=== PATIENT | male | born 1970 | race Caucasian/White ===

== ENCOUNTER → 2016-11-01 | Outpatient (REF) | payer OTHER ==
[2016-11-01 15:56] LABS: BASO % 0.7 % (0.0-1.0); EOS # 0.1 K/mm3 (0.0-0.50); EOS % 1.7 % (0.0-3.0); LARGE UNSTAINED CELL # 0.2 K/mm3 (0.0-0.4); LYMPH # 2.7 K/mm3 (1.5-4.5); LYMPH % 41.1 % (24.0-44.0); MEAN CORPUSCULAR HEMOGLOBIN 29.6 pg (27.0-33.0); MEAN CORPUSCULAR HGB CONC 33.6 g/dl (32.0-36.5); MEAN CORPUSCULAR VOLUME 88.2 fl (80.0-96.0); MONO # 0.4 K/mm3 (0.0-0.8); MONO % 5.5 % (0.0-5.0); NEUTROPHILS # 3.2 K/mm3 (1.8-7.7); NEUTROPHILS % 47.9 % (36.0-66.0); PLATELET COUNT, AUTOMATED 178 k/mm3 (150-450); RED CELL DISTRIBUTION WIDTH 12.2 % (11.5-14.5); WHITE BLOOD COUNT 6.6 K/mm3 (4.0-10.0)
[2016-11-01 16:23] LABS: ALBUMIN 3.7 GM/DL (3.2-5.2); ALBUMIN/GLOBULIN RATIO 0.93 (1.00-1.93); ALKALINE PHOSPHATASE 77 U/L (45-117); ALT/SGPT 31 U/L (12-78); ANION GAP 10 MEQ/L (8-16); AST/SGOT 18 U/L (15-37); BILIRUBIN,TOTAL 0.9 MG/DL (0.2-1.0); BLOOD UREA NITROGEN 15 MG/DL (7-18); CALCIUM LEVEL 8.3 MG/DL (8.5-10.1); CARBON DIOXIDE LEVEL 24 MEQ/L (21-32); CHLORIDE LEVEL 105 MEQ/L (98-107); GLOMERULAR FILTRATION RATE > 60.0 (>60); GLUCOSE, FASTING 164 MG/DL (70-105); POTASSIUM SERUM 3.9 MEQ/L (3.5-5.1); SODIUM LEVEL 139 MEQ/L (136-145); TOTAL PROTEIN 7.7 GM/DL (6.4-8.2)
[2016-11-01 16:34] LABS: ERYTHROCYTE SEDIMENTATION RATE 3 mm/hr (0-15)
[2016-11-02 12:52] LABS: ALBUMIN % 54.6 % (55.8-66.1); GAMMA GLOBULIN % 20.3 % (11.1-18.8)
[2016-11-03 15:12] LABS: Lyme Disease IgG/IgM Antibodie <0.91 ISR (0.00-0.90); Lyme Disease IgM Ab Quantitati <0.80 index (0.00-0.79)
== END ==
LOC: M LABDRAW1 15:24
PROVIDERS: ATTEND Internal Medicine Rheumatology
DX: M35.9 Systemic involvement of connective tissue, unspecified (principal); R53.83 Other fatigue; D47.2 Monoclonal gammopathy; Z79.899 Other long term (current) drug therapy

== ENCOUNTER → 2017-06-03 | Outpatient (CLI) | payer OTHER ==
[~2017-06-03] MED LIST: CIAL5TAB PO; CYCL10TA PO; GLYB25TA PO; INVO300T PO; JANU100T PO; METF-700 PO; OMEP40CA2 PO
[2017-06-03 09:17] LABS: BASO % 0.7 % (0.0-1.0); EOS # 0.1 K/mm3 (0.0-0.50); EOS % 1.9 % (0.0-3.0); LARGE UNSTAINED CELL # 0.2 K/mm3 (0.0-0.4); LARGE UNSTAINED CELL % 2.9 % (0.0-4.0); LYMPH # 2.1 K/mm3 (1.5-4.5); LYMPH % 37.3 % (24.0-44.0); MEAN CORPUSCULAR HEMOGLOBIN 30.7 pg (27.0-33.0); MEAN CORPUSCULAR HGB CONC 34.9 g/dl (32.0-36.5); MONO # 0.3 K/mm3 (0.0-0.8); MONO % 4.8 % (0.0-5.0); NEUTROPHILS # 2.9 K/mm3 (1.8-7.7); NEUTROPHILS % 52.5 % (36.0-66.0); PLATELET COUNT, AUTOMATED 192 k/mm3 (150-450); RED CELL DISTRIBUTION WIDTH 12.6 % (11.5-14.5); WHITE BLOOD COUNT 5.6 K/mm3 (4.0-10.0)
[2017-06-03 09:46] LABS: ALBUMIN 3.8 GM/DL (3.2-5.2); ALBUMIN/GLOBULIN RATIO 0.88 (1.00-1.93); ALKALINE PHOSPHATASE 82 U/L (45-117); ALT/SGPT 26 U/L (12-78); ANION GAP 10 MEQ/L (8-16); AST/SGOT 17 U/L (15-37); BILIRUBIN,TOTAL 0.8 MG/DL (0.2-1.0); BLOOD UREA NITROGEN 20 MG/DL (7-18); CALCIUM LEVEL 8.4 MG/DL (8.5-10.1); CARBON DIOXIDE LEVEL 23 MEQ/L (21-32); CHLORIDE LEVEL 106 MEQ/L (98-107); CHOLESTEROL LEVEL 151 MG/DL (<200); CREATININE FOR GFR 0.98 MG/DL (0.70-1.30); GLOMERULAR FILTRATION RATE > 60.0 (>60); GLUCOSE, FASTING 211 MG/DL (70-105); POTASSIUM SERUM 4.1 MEQ/L (3.5-5.1); SODIUM LEVEL 139 MEQ/L (136-145); TOTAL PROTEIN 8.1 GM/DL (6.4-8.2); TRIGLYCERIDES LEVEL 194 MG/DL (<150)
[2017-06-04 14:14] LABS: PSA TOTAL 0.7 ng/mL (0.0-4.0)
== END ==
LOC: M WUC 08:03
PROVIDERS: ATTEND Nurse Practitioner Family
DX: E78.4 Other hyperlipidemia (principal); K21.9 Gastro-esophageal reflux disease without esophagitis; Z12.5 Encounter for screening for malignant neoplasm of prostate

== ENCOUNTER 2017-07-12 23:17 | Emergency (ER) | payer BC, OTHER ==
[~2017-07-12] VITALS: Ht 177.8 cm; Wt 150.0 kg
[2017-07-12] MEDS ORDERED: GLYB25TA PO (23:32)
[2017-07-12] MEDS ORDERED: INVO300T PO (23:32)
[2017-07-12] MEDS ORDERED: CYCL10TA PO (23:32)
[2017-07-12] MEDS ORDERED: CIAL5TAB PO (23:32)
[2017-07-12] MEDS ORDERED: METF-700 PO (23:32)
[2017-07-12] MEDS ORDERED: JANU100T PO (23:32)
[2017-07-12] MEDS ORDERED: OMEP40CA2 PO (23:32)
[2017-07-13] MEDS ORDERED: HYDROmorphone HCL 1 MG/ML SYRINGE (J1170) IV ONE (00:30)
[2017-07-13] MEDS ORDERED: NS 1,000 ML IV ONE (00:30)
[2017-07-13] MEDS ORDERED: ISOVUE-370 76% 100ML VIAL (Q9967) As Ordered ONE (00:43)
[2017-07-13 00:44] LABS: BASO # 0.1 10^3/uL (0.0-0.2); BASO % 0.5 % (0.0-1.0); EOS # 0.1 10^3/uL (0.0-0.50); EOS % 1.4 % (0.0-3.0); IMMATURE GRANULOCYTE % 1.1 % (0-0); LYMPH # 2.2 10^3/uL (1.5-4.5); LYMPH % 23.4 % (24.0-44.0); MEAN CORPUSCULAR HEMOGLOBIN 30.1 pg (27.0-33.0); MEAN CORPUSCULAR HGB CONC 34.4 g/dl (32.0-36.5); MEAN CORPUSCULAR VOLUME 87.6 fl (80.0-96.0); MONO % 10.5 % (0.0-5.0); NEUTROPHILS # 5.8 10^3/uL (1.8-7.7); NEUTROPHILS % 63.1 % (36.0-66.0); PLATELET COUNT, AUTOMATED 225 10^3/uL (150-450); RED CELL DISTRIBUTION WIDTH 13.7 % (11.5-14.5); WHITE BLOOD COUNT 9.2 10^3/uL (4.0-10.0)
[2017-07-13 02:44] LABS: ALBUMIN 3.5 GM/DL (3.2-5.2); ALBUMIN/GLOBULIN RATIO 0.83 (1.00-1.93); ALKALINE PHOSPHATASE 80 U/L (45-117); ALT/SGPT 32 U/L (12-78); ANION GAP 8 MEQ/L (8-16); AST/SGOT 18 U/L (15-37); BILIRUBIN,DIRECT 0.4 MG/DL (0.0-0.2); BILIRUBIN,TOTAL 1.2 MG/DL (0.2-1.0); BLOOD UREA NITROGEN 24 MG/DL (7-18); CALCIUM LEVEL 8.3 MG/DL (8.5-10.1); CARBON DIOXIDE LEVEL 23 MEQ/L (21-32); CHLORIDE LEVEL 104 MEQ/L (98-107); CREATININE FOR GFR 0.86 MG/DL (0.70-1.30); GLOMERULAR FILTRATION RATE > 60.0 (>60); GLUCOSE, FASTING 171 MG/DL (70-105); POTASSIUM SERUM 3.7 MEQ/L (3.5-5.1); SODIUM LEVEL 135 MEQ/L (136-145); TOTAL PROTEIN 7.7 GM/DL (6.4-8.2)
--- NOTE | 2017-07-13 04:30 | REPUSA ---
CLINICAL HISTORY: Neck pain. TECHNIQUE: Multiple axial images were obtained through the cervical spine. Images were also reconstru cted in coronal and sagittal planes. The study was performed without IV contrast. COMMENTS: There is no fracture or spondylolisthesis visualized. The paraspinal soft tissues are unremarkable. T here are no lytic or blastic lesions. Straightening of cervical lordosis is seen, suggesting muscular spasm. There is evidence of multileve l disk disease, demonstrated by osteophytosis and endplate sclerosis. IMPRESSION: 1. No fracture or spondylolisthesis. 2. Straightening of cervical lordosis is seen, suggesting muscular spasm. 3. Multilevel spondylosis. Thank you for your kind referral of this patient.
--- NOTE | 2017-07-13 04:50 | REPUSA ---
CLINICAL HISTORY: Trauma. TECHNIQUE: Multiple axial CT images were obtained through the thoracic spine without IV contrast mate rial. MPR coronal and sagittal sequences were obtained. COMMENTS: There are diffuse spondylotic changes. Findings are demonstrated by disc space narrowing, osteophyte formation and degenerative endplate changes. Facet joint arthropathy. No fracture or dislocation is s een. No aggressive bone lesion is noted. There is no fracture visualized. The paraspinal soft tissues are unremarkable. There are no lytic or blastic lesions. The paravertebral soft tissue space is normal. IMPRESSION: Spondylosis. No acute bone pathology. Thank you for your kind referral of this patient.
--- NOTE | 2017-07-13 04:50 | REPUSA ---
CLINICAL HISTORY: Abdominal pain. TECHNIQUE: Multiple axial, sagittal and coronal CT images were obtained through the abdomen and pelvi s after administration of intravenous contrast material. COMMENTS: The liver is moderately enlarged with decreased attenuation without mass or defect. There is no intra or extrahepatic biliary ductal dilatation. The spleen is normal. The gallbladder is within normal li mits. The pancreas is of normal contour and attenuation characteristics. There is no evidence of adre nal mass. Both kidneys demonstrate prompt and equal nephrograms. The kidneys are normal in size, shape and conf iguration. There is no evidence of renal or ureteral mass. No renal or ureteral calculi are identifie d. There is no hydroureter or hydronephrosis. No evidence for appendicitis. There is no bowel wall thickening. No evidence for small or large dulce l obstruction. There is no evidence of abdominal ascites or lymphadenopathy. There is no evidence of intrinsic or extrinsic bladder mass. There is no pelvic ascites or lymphadeno milagros. Fluid and diffusely dilated colon. Images of the lung bases show no evidence of pleural or parenchymal mass. There are no pleural effusi ons. Bilateral basilar subsegmental atelectatic air space disease. The bony structures are free of lytic or blastic lesions. Multilevel degenerative changes are seen in volving the thoracolumbar spine. Scattered calcifications are seen involving the aorta and major bran ches compatible with atherosclerosis. IMPRESSION: No evidence of acute abdominal or pelvic pathology. Mild ileus. Hepatomegaly with fatty liver infiltration. Thank you for your kind referral of this patient.
--- NOTE | 2017-07-13 05:10 | REPUSA ---
CLINICAL HISTORY: Trauma. TECHNIQUE: Multiple incremental axial, coronal and oblique images are obtained from the thoracic inle t to the upper abdomen. Intravenous contrast material was administered as per pulmonary embolism prot ocol. COMMENTS: Mildly displaced fractures of the axillary portion of the right fifth, sixth and seventh ribs. There is excellent opacification of pulmonary arterial system without evidence for pulmonary embolism . Aorta is of normal caliber without evidence for dissection or aneurysm. Subsegmental atelectatic airspace disease in the lung bases. Basilar atelectatic lung changes. There is no evidence of pleural or parenchymal mass. There are no pleural effusions. There is no evid ence of hilar or mediastinal lymphadenopathy. The heart and great vessels are within normal limits. Images of the upper abdomen demonstrate no evidence of adrenal mass. The bony structures are free of lytic or blastic lesions. IMPRESSION: Acute right rib fractures. No evidence for pulmonary embolism. Basilar atelectatic lung changes. Thank you for your kind referral of this patient.
[2017-07-13] MEDS ORDERED: MORPHINE 4 MG/ML 1ML SYRINGE IV ONE (05:30)
[2017-07-13] MEDS ORDERED: NORCO 5/325MG TABLET (BULK FOR ED) PO ONE (05:30)
[2017-07-13 06:02] VITALS: BP 108/56
== END 2017-07-13 06:25 | disposition home or self-care (01) ==
LOC: M ED 23:17
DX: S20.219A Contusion of unspecified front wall of thorax, initial encounter (principal); V80.010A Animal-rider injured by fall from or being thrown from horse in noncollision accident, initial encounter; Y92.89 Other specified places as the place of occurrence of the external cause; Y93.52 Activity, horseback riding; Y99.8 Other external cause status; E11.9 Type 2 diabetes mellitus without complications; K21.9 Gastro-esophageal reflux disease without esophagitis; Z79.84 Long term (current) use of oral hypoglycemic drugs; Z79.899 Other long term (current) drug therapy
CPT/HCPCS: 70450; 71275; 72125; 72128; 74177; 80048; 80076; 82550; 85025; 96374; 96375; 99284; J1170; Q9967

== ENCOUNTER → 2017-09-27 | Outpatient (CLI) | payer OTHER ==
[2017-09-27 18:34] LABS: ANION GAP 7 MEQ/L (8-16); BLOOD UREA NITROGEN 15 MG/DL (7-18); CALCIUM LEVEL 8.8 MG/DL (8.5-10.1); CARBON DIOXIDE LEVEL 29 MEQ/L (21-32); CHLORIDE LEVEL 103 MEQ/L (98-107); CREATININE FOR GFR 0.93 MG/DL (0.70-1.30); GLOMERULAR FILTRATION RATE > 60.0 (>60); GLUCOSE, FASTING 150 MG/DL (70-105); POTASSIUM SERUM 4.2 MEQ/L (3.5-5.1); SODIUM LEVEL 139 MEQ/L (136-145)
== END ==
LOC: M WUC 14:08
DX: Z01.812 Encounter for preprocedural laboratory examination (principal)
CPT/HCPCS: 80048

== ENCOUNTER → 2017-10-10 | Outpatient (CLI) | payer OTHER ==
[2017-10-10 16:57] LABS: ANION GAP 7 MEQ/L (8-16); BLOOD UREA NITROGEN 14 MG/DL (7-18); CALCIUM LEVEL 8.7 MG/DL (8.5-10.1); CARBON DIOXIDE LEVEL 29 MEQ/L (21-32); CHLORIDE LEVEL 101 MEQ/L (98-107); CREATININE FOR GFR 1.17 MG/DL (0.70-1.30); GLOMERULAR FILTRATION RATE > 60.0 (>60); GLUCOSE, FASTING 263 MG/DL (70-105); POTASSIUM SERUM 4.2 MEQ/L (3.5-5.1); SODIUM LEVEL 137 MEQ/L (136-145)
== END ==
LOC: M WUC 13:54
DX: Z01.812 Encounter for preprocedural laboratory examination (principal)
CPT/HCPCS: 80048

== ENCOUNTER → 2017-10-11 | Outpatient (CLI) | payer OTHER | LOC: M EKG 10:08 | DX: Z01.818 Encounter for other preprocedural examination (principal) | CPT/HCPCS: 93005 ==

== ENCOUNTER → 2017-12-06 | Outpatient (CLI) | payer OTHER, BC ==
[2017-12-06 13:07] LABS: ALBUMIN 3.8 GM/DL (3.2-5.2); ALBUMIN/GLOBULIN RATIO 0.93 (1.00-1.93); ALKALINE PHOSPHATASE 82 U/L (45-117); ALT/SGPT 27 U/L (12-78); ANION GAP 8 MEQ/L (8-16); AST/SGOT 15 U/L (7-37); BILIRUBIN,TOTAL 0.6 MG/DL (0.2-1.0); BLOOD UREA NITROGEN 20 MG/DL (7-18); CALCIUM LEVEL 8.8 MG/DL (8.5-10.1); CARBON DIOXIDE LEVEL 25 MEQ/L (21-32); CHLORIDE LEVEL 105 MEQ/L (98-107); CHOLESTEROL LEVEL 151 MG/DL (<200); CHOLESTEROL RISK RATIO 3.212 (<5); CREATININE FOR GFR 1.01 MG/DL (0.70-1.30); GLOMERULAR FILTRATION RATE > 60.0 (>60); GLUCOSE, FASTING 151 MG/DL (70-100); HDL CHOLESTEROL 47 MG/DL (>40); NON-HDL-C 104 MG/DL; POTASSIUM SERUM 4.3 MEQ/L (3.5-5.1); SODIUM LEVEL 138 MEQ/L (136-145); TOTAL PROTEIN 7.9 GM/DL (6.4-8.2); TRIGLYCERIDES LEVEL 135 MG/DL (<150)
== END ==
LOC: M WUC 08:45
DX: E78.4 Other hyperlipidemia (principal)
CPT/HCPCS: 80053

== ENCOUNTER → 2018-03-24 | Outpatient (CLI) | payer OTHER, BC ==
[2018-03-24 19:49] LABS: ANION GAP 12 MEQ/L (8-16); BLOOD UREA NITROGEN 16 MG/DL (7-18); CALCIUM LEVEL 8.6 MG/DL (8.5-10.1); CARBON DIOXIDE LEVEL 24 MEQ/L (21-32); CHLORIDE LEVEL 106 MEQ/L (98-107); GLOMERULAR FILTRATION RATE > 60.0 (>60); GLUCOSE, FASTING 80 MG/DL (70-100); POTASSIUM SERUM 3.9 MEQ/L (3.5-5.1); SODIUM LEVEL 142 MEQ/L (136-145)
== END ==
LOC: M WUC 15:29
DX: Z01.818 Encounter for other preprocedural examination (principal)
CPT/HCPCS: 80048

== ENCOUNTER → 2018-09-18 | Outpatient (CLI) | payer OTHER, BC ==
[2018-09-18 15:26] LABS: BASO % 0.5 % (0.0-1.0); EOS # 0.1 10^3/uL (0.0-0.50); EOS % 1.3 % (0.0-3.0); HEMATOCRIT 49.1 % (42.0-52.0); HEMOGLOBIN 16.7 g/dl (13.5-17.5); LYMPH # 1.8 10^3/uL (1.5-4.5); LYMPH % 30.5 % (24.0-44.0); MEAN CORPUSCULAR HEMOGLOBIN 29.6 pg (27.0-33.0); MEAN CORPUSCULAR VOLUME 87.1 fl (80.0-96.0); MONO # 0.4 10^3/uL (0.0-0.8); NEUTROPHILS # 3.6 10^3/uL (1.8-7.7); NEUTROPHILS % 60.2 % (36.0-66.0); PLATELET COUNT, AUTOMATED 203 10^3/uL (150-450); RED BLOOD COUNT 5.64 10^6/uL (4.30-6.10)
[2018-09-18 15:27] LABS: ALBUMIN 3.7 GM/DL (3.2-5.2); ALT/SGPT 27 U/L (12-78); BILIRUBIN,TOTAL 0.8 MG/DL (0.2-1.0); BLOOD UREA NITROGEN 14 MG/DL (7-18); CALCIUM LEVEL 8.6 MG/DL (8.5-10.1); CARBON DIOXIDE LEVEL 24 MEQ/L (21-32); CHLORIDE LEVEL 102 MEQ/L (98-107); CHOLESTEROL LEVEL 186 MG/DL (<200); CHOLESTEROL RISK RATIO 3.795 (<5); CREATININE FOR GFR 0.94 MG/DL (0.70-1.30); GLOMERULAR FILTRATION RATE > 60.0 (>56); GLUCOSE, FASTING 245 MG/DL (70-100); HDL CHOLESTEROL 49 MG/DL (>40); LDL CHOLESTEROL 96 MG/DL (<100); NON-HDL-C 137 MG/DL; POTASSIUM SERUM 4.1 MEQ/L (3.5-5.1); SODIUM LEVEL 136 MEQ/L (136-145); TOTAL PROTEIN 7.7 GM/DL (6.4-8.2); TRIGLYCERIDES LEVEL 205 MG/DL (<150)
[2018-09-18 16:09] LABS: HEMOGLOBIN A1c 10.5 %
== END ==
LOC: M WUC 12:07
PROVIDERS: ATTEND Nurse Practitioner Family
DX: E78.49 Other hyperlipidemia (principal); K21.9 Gastro-esophageal reflux disease without esophagitis; E11.9 Type 2 diabetes mellitus without complications

== ENCOUNTER → 2018-10-29 | Outpatient (REF) | payer OTHER | LOC: M SFHCPLAZ 17:12 → M SFHCLERA 17:12 | PROVIDERS: ATTEND Dermatology | DX: L73.2 Hidradenitis suppurativa (principal); L57.0 Actinic keratosis ==

== ENCOUNTER → 2019-02-11 | Outpatient (CLI) | payer BC, OTHER ==
--- NOTE | 2019-02-11 14:32 | REP ---
Clinical: Left lower extremity swelling and medial lump. Technique: Montoya scale and color Doppler evaluation using linear high frequency transducer. Findings: Ultrasound examination of the left lower extremity deep venous structures from the common femoral vein to the popliteal vein demonstrates normal compressibility flow and wave patterns in response to respiration and augmentation. There is no evidence for deep venous thrombosis. "Lump" along the medial thigh corresponds to varicoceles. Impression: No evidence for deep venous thrombosis. Electronically Signed by Greyson Ryan MD 02/11/2019 02:24 P
== END ==
LOC: M RAD 13:29
PROVIDERS: ATTEND Physician Assistant
DX: R22.42 Localized swelling, mass and lump, left lower limb (principal)

== ENCOUNTER → 2019-05-29 | Outpatient (CLI) | payer OTHER, BC ==
[2019-05-29 21:04] LABS: HEMOGLOBIN A1c 10.4 %
== END ==
LOC: M WUC 15:54
PROVIDERS: ATTEND Nurse Practitioner Family
DX: E11.9 Type 2 diabetes mellitus without complications (principal)

== ENCOUNTER 2019-10-14 07:11 | Day surgery (SDC) | payer BC, OTHER ==
[~2019-10-14] VITALS: Ht 177.8 cm; Wt 150.1 kg
[~2019-10-14 07:11] MED LIST changes: +NS 1,000 ML IV ONE; -OMEP40CA2 PO; +OMEP40CA97 PO; +TOUJ1.2I SC
[2019-10-14] MEDS ORDERED: fentaNYL 100 MCG/2 ML INJECTION (J3010) As Ordered ONE (08:10)
[2019-10-14] MEDS ORDERED: propofoL 500 MG/50 ML VIAL As Ordered ONE (08:10)
[2019-10-14] MEDS ORDERED: LIDOCAINE 2% INJ 100 MG/5 ML SDV (FOR ANES.) As Ordered ONE (09:01)
[2019-10-14] MEDS ORDERED: CETACAINE SPRAY 5GM As Ordered ONE (09:01)
--- NOTE | 2019-10-14 09:24 | ROOR ---
Patient Name: Norman Dior Procedure Date: 10/14/2019 9:01 AM Date of : 1970 Age: 49 Room: [facility] Gender: Male Note Status: Finalized Procedure: Upper Endoscopy + Biopsies Indications: Heartburn, Exclusion of Taylor's esophagus Providers: Michael Metcalf MD Referring MD: Magnolia Roman NP Requesting Provider: Medicines: Monitored Anesthesia Care Complications: No immediate complications. Procedure: Pre-Anesthesia Assessment: - The heart rate, respiratory rate, oxygen saturations, blood pressure, adequacy of pulmonary ventilation, and response to care were monitored throughout the procedure. The Endoscope was introduced through the mouth, and advanced to the second part of duodenum. The upper GI endoscopy was accomplished without difficulty. The patient tolerated the procedure well. Findings: The Z-line was irregular and was found 40 cm from the incisors. Multiple biopsies were obtained with cold forceps for evaluation to rule out Taylor's Esophagus randomly at the gastroesophageal junction. A small hiatal hernia was present. No other significant abnormalities were identified in a careful examination of the stomach. The exam of the duodenum was otherwise normal. Impression: - Z-line irregular, 40 cm from the incisors. - Small hiatal hernia. - Multiple biopsies were obtained at the gastroesophageal junction. - The examination was otherwise normal. Recommendation: - Patient has a contact number available for emergencies. The signs and symptoms of potential delayed complications were discussed with the patient. Return to normal activities tomorrow. Written discharge instructions were provided to the patient. - High fiber diet. - Discharge patient to home. - Resume previous diet. - Continue present medications. - Return to referring physician. - The findings and recommendations were discussed with the patient's family. Michael Metcalf MD Michael Metcalf MD 10/14/2019 9:23:55 AM Electronically signed by Michael Metcalf MD Number of Addenda: 0 Note Initiated On: 10/14/2019 9:01 AM Estimated Blood Loss: Estimated blood loss: none.
--- NOTE | 2019-10-14 09:42 | ROOR ---
Patient Name: Norman Dior Procedure Date: 10/14/2019 9:01 AM Date of : 1970 Age: 49 Room: [facility] Gender: Male Note Status: Finalized Procedure: Total Colonoscopy to Cecum + Biopsy Polypectomy Indications: Screening for colorectal malignant neoplasm Providers: Michael Metcalf MD Referring MD: Magnolia Roman NP Requesting Provider: Medicines: Monitored Anesthesia Care Complications: No immediate complications. Procedure: Pre-Anesthesia Assessment: - The heart rate, respiratory rate, oxygen saturations, blood pressure, adequacy of pulmonary ventilation, and response to care were monitored throughout the procedure. The Colonoscope was introduced through the anus and advanced to the cecum, identified by appendiceal orifice and ileocecal valve. The colonoscopy was performed without difficulty. The patient tolerated the procedure well. The quality of the bowel preparation was inadequate. Findings: The perianal and digital rectal examinations were normal. Non-bleeding internal hemorrhoids were found during retroflexion. The hemorrhoids were small and Grade I (internal hemorrhoids that do not prolapse). Extensive amounts of stool was found in the entire colon, precluding visualization. A small polyp was found in the hepatic flexure. The polyp was sessile. The polyp was removed with a jumbo cold forceps. Resection and retrieval were complete. The exam was otherwise without abnormality on direct and retroflexion views. Impression: - Preparation of the colon was inadequate. - Non-bleeding internal hemorrhoids. - Stool in the entire examined colon. - One small polyp at the hepatic flexure, removed with a jumbo cold forceps. Resected and retrieved. - The examination was otherwise normal on direct and retroflexion views. - The exam was otherwise normal to the cecum. Recommendation: - Patient has a contact number available for emergencies. The signs and symptoms of potential delayed complications were discussed with the patient. Return to normal activities tomorrow. Written discharge instructions were provided to the patient. - High fiber diet. - Discharge patient to home. - Continue present medications. - Await pathology results. - Telephone GI clinic for pathology results in 1 week. - Return to referring physician. - The findings and recommendations were discussed with the patient's family. Michael Metcalf MD Michael Metcalf MD 10/14/2019 9:42:13 AM Electronically signed by Michael Metcalf MD Number of Addenda: 0 Note Initiated On: 10/14/2019 9:01 AM Estimated Blood Loss: Estimated blood loss: none.
[2019-10-14 10:00] VITALS: BP 159/96
== END 2019-10-14 10:18 | disposition home or self-care (01) ==
LOC: M OPP 07:11
PROVIDERS: ATTEND Internal Medicine Gastroenterology
DX: Z12.11 Encounter for screening for malignant neoplasm of colon (principal); K64.0 First degree hemorrhoids; D12.3 Benign neoplasm of transverse colon; K22.8 Other specified diseases of esophagus; K44.9 Diaphragmatic hernia without obstruction or gangrene; K21.9 Gastro-esophageal reflux disease without esophagitis; R12 Heartburn; Z79.4 Long term (current) use of insulin; Z79.2 Long term (current) use of antibiotics; Z79.899 Other long term (current) drug therapy
CPT/HCPCS: 43239; 45380; 88305; J3010

== ENCOUNTER → 2019-11-12 | Outpatient (CLI) | payer OTHER, BC ==
[~2019-11-12] MED LIST changes: -NS 1,000 ML IV ONE
[2019-11-12 16:29] LABS: BASO # 0.1 10^3/uL (0.0-0.2); BASO % 0.7 % (0.0-1.0); EOS # 0.1 10^3/uL (0.0-0.5); EOS % 1.3 % (0.0-3.0); HEMATOCRIT 51.9 % (42.0-52.0); HEMOGLOBIN 17.8 g/dl (13.5-17.5); LYMPH # 2.8 10^3/uL (1.5-5.0); LYMPH % 37.9 % (24.0-44.0); MEAN CORPUSCULAR HEMOGLOBIN 29.4 pg (27.0-33.0); MEAN CORPUSCULAR HGB CONC 34.3 g/dl (32.0-36.5); MEAN CORPUSCULAR VOLUME 85.6 fl (80.0-96.0); MONO # 0.6 10^3/uL (0.0-0.8); MONO % 7.8 % (0.0-5.0); NEUTROPHILS # 3.8 10^3/uL (1.5-8.5); NEUTROPHILS % 51.1 % (36.0-66.0); PLATELET COUNT, AUTOMATED 188 10^3/uL (150-450); RED BLOOD COUNT 6.06 10^6/uL (4.30-6.10); WHITE BLOOD COUNT 7.4 10^3/uL (4.0-10.0)
[2019-11-12 16:44] LABS: ALT/SGPT 28 U/L (12-78); BILIRUBIN,TOTAL 0.7 MG/DL (0.2-1.0); BLOOD UREA NITROGEN 17 MG/DL (7-18); CARBON DIOXIDE LEVEL 26 MEQ/L (21-32); CHLORIDE LEVEL 104 MEQ/L (98-107); CHOLESTEROL LEVEL 188 MG/DL (<200); CHOLESTEROL RISK RATIO 3.916 (<5); CREATININE FOR GFR 1.01 MG/DL (0.70-1.30); FREE T4 1.16 NG/DL (0.76-1.46); GLOMERULAR FILTRATION RATE > 60.0 (>56); GLUCOSE, FASTING 240 MG/DL (70-100); HDL CHOLESTEROL 48 MG/DL (>40); LDL CHOLESTEROL 82 MG/DL (<100); NON-HDL-C 140 MG/DL; POTASSIUM SERUM 4.3 MEQ/L (3.5-5.1); SODIUM LEVEL 136 MEQ/L (136-145); TOTAL PROTEIN 8.1 GM/DL (6.4-8.2); TRIGLYCERIDES LEVEL 288 MG/DL (<150)
[2019-11-12 17:06] LABS: CREATININE, URINE 75.5 MG/DL; MALB URINE SIEMENS 12.5 MG/L; MAU/CREAT RATIO 16.5 MCG/MG (0.0-30.0)
== END ==
LOC: M WUC 11:19
PROVIDERS: ATTEND Nurse Practitioner Family
DX: E11.9 Type 2 diabetes mellitus without complications (principal); E66.01 Morbid (severe) obesity due to excess calories

== ENCOUNTER → 2020-01-22 | Outpatient (CLI) | payer BC, OTHER ==
[~2020-01-22] MED LIST changes: +CYCL-707 PO; -CYCL10TA PO
--- NOTE | 2020-01-22 17:27 | REP ---
BILATERAL HIP SERIES: FOUR VIEWS. HISTORY: Pain. FINDINGS: AP and frog-leg views of both hips demonstrate bilateral hip joint osteoarthritis with femoral and acetabular spurring. These changes are more pronounced on the right than the left. Femoral heads remains smooth and rounded. Hip joint spaces are preserved. No bony destructive or erosive changes seen. IMPRESSION: Bilateral hip joint osteoarthritis, right greater than left. Electronically Signed by Jonathan Calderón MD 01/25/2020 08:44 A
== END ==
LOC: M WUC 16:10
PROVIDERS: ATTEND Psychiatry & Neurology Neurology
DX: M25.552 Pain in left hip (principal); M25.551 Pain in right hip; M16.0 Bilateral primary osteoarthritis of hip

== ENCOUNTER → 2020-08-23 | Outpatient (CLI) | payer BC, OTHER ==
[~2020-08-23] MED LIST changes: -METF-700 PO; +METF-818 PO
== END ==
LOC: M LABSMTC 12:17
PROVIDERS: ATTEND Family Medicine
DX: Z20.828 Contact with and (suspected) exposure to other viral communicable diseases (principal)

== ENCOUNTER → 2020-11-01 | Outpatient (POV) | payer BC, OTHER ==
--- NOTE | 2020-11-02 12:23 | IRCOV ---
[facility] IR Consult Office Visit IR Consult Office Visit DATE: Nov 01, 2020 Patient agreed to this-consultation. I spent 30 minutes roving patient's records and talking to the patient. REASON FOR CONSULTATION/CHIEF COMPLAINT: Varicose veins. HISTORY OF PRESENT ILLNESS: 50-year-old male complaining of a large varix on the medial left thigh which recently exploded and blood. It is now sealed up. He's had a varicose vein in the area for over a year. It is associated pain and swelling. No prior history of DVT. No prior history of vein therapy. ALLERGIES: Please see below. HOME MEDICATIONS: Please see below. PAST MEDICAL HISTORY: Diabetes Sleep apnea GERD L1 compression PAST SURGICAL HISTORY: Tonsillectomy Carpal tunnel surgery Ulnar release Vasectomy FAMILY HISTORY: Grandmother suffered with varicose veins. SOCIAL HISTORY: Nonsmoker. Denies alcohol or drugs. REVIEW OF SYSTEMS: Otherwise negative. PHYSICAL EXAMINATION: No video on patient side. LABORATORY DATA: 11/12/2019 hemoglobin 17.8 hematocrit 51.9 to BBC 7.4 platelets 188 sodium 136 potassium 4.3 BUN 17 creatinine 1.01 hemoglobin A1c 11 Imaging: No varicose vein imaging. ASSESSMENT/PLAN: 50-year-old male complaining of pain, swelling and recent bleeding associated with a varicosity running along his left medial thigh. I will order left lower extremity standing venous reflux study to assess for saphenous vein incompetency. If this is positive, he may be a candidate for EVLT therapy. Thank you for this referral. Cc Amanda Roman Allergies Coded Allergies: No Known Allergies (Unverified , 10/01/19) Home Medications Scheduled Canagliflozin (Invokana), 300 MG PO DAILY, (Reported) Insulin Glargine,Hum.rec.anlog (Toumichael Solostar), 50 UNIT SC QAM, (Reported) Metformin HCl (Metformin ER Gastric), 1,000 MG PO DAILY, (Reported) Omeprazole (Omeprazole), 40 MG PO DAILY, (Reported) Sitagliptin Phosphate (Januvia), 100 MG PO DAILY, (Reported) Tadalafil (Cialis), 5 MG PO DAILY, (Reported) MARITO MUÑOZ MD Nov 02, 2020 12:23
== END ==
LOC: M TMIRPOV 10:19
PROVIDERS: ATTEND Radiology Diagnostic Radiology
DX: I83.812 Varicose veins of left lower extremity with pain (principal); E11.9 Type 2 diabetes mellitus without complications; K21.9 Gastro-esophageal reflux disease without esophagitis; G47.33 Obstructive sleep apnea (adult) (pediatric); Z79.4 Long term (current) use of insulin; Z79.899 Other long term (current) drug therapy

== ENCOUNTER → 2020-11-25 | Outpatient (CLI) | payer BC, OTHER ==
[~2020-11-25] MED LIST changes: +GLYB2.5T7 PO; -GLYB25TA PO
== END ==
LOC: M RAD 07:34
PROVIDERS: ATTEND Radiology Diagnostic Radiology
DX: Z53.9 Procedure and treatment not carried out, unspecified reason (principal); I83.812 Varicose veins of left lower extremity with pain

== ENCOUNTER → 2020-11-25 | Outpatient (CLI) | payer BC, OTHER ==
--- NOTE | 2020-11-25 10:43 | REP ---
INDICATION: VARICOSE VEINS COMPARISON: 02/11/2019. TECHNIQUE: Real time compression and duplex Doppler interrogation of the bilateral lower extremity deep venous system is performed. FINDINGS: Bilaterally, the common femoral, superficial femoral and popliteal veins are fully compressible with transducer pressure and demonstrate normal spontaneous and phasic flow, without evidence of deep venous thrombosis. Evaluation for venous reflux is performed. On the right trace short duration reflux is seen throughout the deep venous system. There is an anterior accessory greater saphenous vein present without reflux. There is minimal greater saphenous vein reflux, small volume. In the greater saphenous vein at the saphenofemoral junction duration of reflux is 2.3 seconds, AP diameter 6 mm, at the midthigh 1.5 seconds duration AP diameter 4 mm and at the knee 0.5 seconds AP diameter 4 mm. There is no reflux in the lesser saphenous vein which measures 3 mm. On the left there is not significant deep vein reflux. There is significant reflux into anterior accessory greater saphenous vein which communicates with varices. There is reflux in the greater saphenous vein at the saphenofemoral junction, of small volume, duration 2.5 seconds in AP diameter 8 mm. 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 There is no reflux in the greater saphenous vein at the midthigh or knee which both measure 3 mm. IMPRESSION: No evidence of deep venous thrombosis of the bilateral lower extremity femoral popliteal venous system. Venous reflux as discussed in detail above. <Electronically signed by Kleber Montoya > 11/25/20 1031
== END ==
LOC: M RAD 07:35
PROVIDERS: ATTEND Nurse Practitioner Family
DX: I83.891 Varicose veins of right lower extremity with other complications (principal)

== ENCOUNTER → 2020-12-26 | Outpatient (CLI) | payer BC, OTHER ==
[~2020-12-26] MED LIST changes: +LIDOCAINE 1% MDV 20ML VIAL As Ordered ONE; +LIDOCAINE 2% MDV 20ML VIAL As Ordered ONE; +MIDAZOLAM INJ 2MG/2ML VIAL (J2250 PER 1MG) As Ordered ONE; +PROMETHAZINE INJ 25 MG/ML VIAL (J2550) As Ordered ONE; +TRUL0.5I; +diphenhydrAMINE 50MG/ML VIAL (J1200) As Ordered ONE; +fentaNYL 100 MCG/2 ML INJECTION (J3010) As Ordered ONE
--- NOTE | 2020-12-26 12:59 | IRHP ---
[facility] IR Pre-Procedure H & P General Date of Service: Dec 26, 2020 Procedure: Same Day Surgery Interval History and Physical I have seen the patient and reviewed last H & P performed within 30 days. There is no significant interval change. History of Present Illness Chief Complaint The patient is a 50-year-old male admitted with a reason for visit of Varicose Veins. PRE-PROCEDURE DIAGNOSIS: varicose vein HEART: normal rate. LUNGS: normal breathing at rest. ASA Classification ASA Classification: II-Mild systemic disease, III-Severe systemic dis. Mallampati Score: II NPO: Yes Problems with prior sedation: No Obstructive Sleep Apnea: Yes Plan moderate sedation Allergies Coded Allergies: No Known Allergies (Unverified , 10/01/19) Home Medications Scheduled Canagliflozin (Invokana), 300 MG PO DAILY, (Reported) Insulin Glargine,Hum.rec.anlog (Jennifer Dickerson), 50 UNIT SC QAM, (Reported) Metformin HCl (Metformin ER Gastric), 1,000 MG PO DAILY, (Reported) Omeprazole (Omeprazole), 40 MG PO DAILY, (Reported) Sitagliptin Phosphate (Januvia), 100 MG PO DAILY, (Reported) Tadalafil (Cialis), 5 MG PO DAILY, (Reported) Miscellaneous Medications Dulaglutide (Trulicity), (Reported) MARITO MUÑOZ MD Dec 26, 2020 12:59
[2020-12-26 16:15] VITALS: BP 154/79
--- NOTE | 2020-12-27 10:22 | IRPON ---
IR Postoperative Note Date Of Procedure: Dec 26, 2020 Time Of Procedure: 16:00 IR Postoperative Note IR Endovenous laser treatment for left leg varicose vein. IR Ultrasound of the left leg. IR Tumescent anesthesia under ultrasound guidance. IR Moderate sedation. Clinical information: Left lower extremity pain and swelling. Varicose veins. Incompetent saphenous vein with greater than 0.5 seconds of reflux. Physician: Dr. Arthur. Procedure: The patient was advised of the benefits, risks and alternatives of the procedure and informed consent was obtained. The time-out was performed with verification of the patient's name, MRN, site of procedure and type of procedure to be performed. The patient was positioned in the supine position on the table. The site was prepped and draped in the usual sterile fashion. Moderate sedation was performed by the physician including the presence of an independent trained RN who assisted in monitoring the patient's level of consciousness and physiologic status. Following the administration of fentanyl and Versed , the physician spent 90 minutes of continuous face to face time with the patient. Ultrasound of the left lower extremity demonstrates dilated anterior accessory greater saphenous vein with greater than 0.5 seconds reflux. The access site was identified with ultrasound and anesthetized with lidocaine. The anterior accessory saphenous vein was accessed under ultrasound guidance at the mid thigh, using a micro introducer needle. Distal to this the vein is incredibly tortuous and superficial and inappropriate for access. An 018 cope wire was advanced into the vein. Incision at the access site was made using a scalpel. The needle was removed and an access catheter was advanced over the wire under ultrasound guidance to > 2.5 centimeters from the saphenofemoral junction. The wire was removed and the laser fiber was advanced through the catheter under ultrasound guidance and positioned with the tip located 2.5 cm from the saphenous femoral junction. Tumescent anesthesia was then injected under ultrasound guidance along the entire length of the vein to be treated. Repeat ultrasound of the saphenofemoral junction was used to confirm positioning of the tip of the laser back 2.5 cm from junction. The patient was positioned in Trendelenburg. The laser was then activated and under ultrasound guidance used to laser the Anterior accessory greater saphenous vein back to the access point. Simultaneous manual compression was applied to the treated vein. Treatment: Wattage: 7. Time: 62 seconds. Pullback rate 1 cm every 7 seconds. Total Energy deposited 434 joules. Treatment 50 joules per centimeter of vein. The fiber, catheter and sheath were removed, pressure held and hemostasis achieved. A sterile dressing was applied to the site. Compression dressing was then applied to the leg, from ankle to groin. The patient tolerated the procedure well and was returned to the PRU in stable condition. EBL: < 5 ml. Complications: None. Impression: 1. Ultrasound demonstrates dilated left anterior accessory greater saphenous vein with greater than 0.5 seconds reflux. 2. Successful anterior accessory greater saphenous vein ablation with laser. 3. Compression dressing applied from ankle to groin. Patient to return in 1 week for follow up ultrasound at which time the compression dressing will be switched to stockings. Thank you this referral. Cc MARITO Eckert NP, MD Dec 27, 2020 10:21
== END ==
LOC: M IRPRO 12:06
PROVIDERS: ATTEND Radiology Diagnostic Radiology
DX: I83.812 Varicose veins of left lower extremity with pain (principal); I83.892 Varicose veins of left lower extremity with other complications; I87.2 Venous insufficiency (chronic) (peripheral); Z79.4 Long term (current) use of insulin; Z79.899 Other long term (current) drug therapy
CPT/HCPCS: 36478; 76940; 99152; 99153; J1200; J2250; J3010

== ENCOUNTER → 2021-01-02 | Outpatient (CLI) | payer BC, OTHER ==
[~2021-01-02] MED LIST changes: -LIDOCAINE 1% MDV 20ML VIAL As Ordered ONE; -LIDOCAINE 2% MDV 20ML VIAL As Ordered ONE; -MIDAZOLAM INJ 2MG/2ML VIAL (J2250 PER 1MG) As Ordered ONE; -PROMETHAZINE INJ 25 MG/ML VIAL (J2550) As Ordered ONE; -diphenhydrAMINE 50MG/ML VIAL (J1200) As Ordered ONE; -fentaNYL 100 MCG/2 ML INJECTION (J3010) As Ordered ONE
--- NOTE | 2021-01-03 07:41 | REP ---
INDICATION: S/P EVLT LT LEG, R/O DVT COMPARISON: None. TECHNIQUE: Montoya scale and color Doppler evaluation using linear high frequency transducer. FINDINGS: Ultrasound examination of the left lower extremity deep venous structures from the common femoral vein to the popliteal vein demonstrates normal compressibility flow and wave patterns in response to respiration and augmentation. There is no evidence for deep venous thrombosis. Greater saphenous vein is thrombosed consistent with prior EVLT beginning 4 cm from the origin with the common femoral vein. IMPRESSION: No evidence for deep venous thrombosis. <Electronically signed by Greyson Ryan > 01/03/21 0738
== END ==
LOC: M RAD 13:58
PROVIDERS: ATTEND Radiology Diagnostic Radiology
DX: I82.812 Embolism and thrombosis of superficial veins of left lower extremity (principal); Z98.890 Other specified postprocedural states

== ENCOUNTER → 2021-05-25 | Outpatient (REF) | payer OTHER ==
[~2021-05-25] MED LIST changes: +OMEP40CA4 PO; -OMEP40CA97 PO
[2021-05-25 11:10] LABS: HEMOGLOBIN A1c 10.8 %
[2021-05-25 11:21] LABS: ALBUMIN 3.6 GM/DL (3.2-5.2); ALT/SGPT 23 U/L (12-78); BILIRUBIN,TOTAL 0.8 MG/DL (0.2-1.0); BLOOD UREA NITROGEN 18 MG/DL (7-18); CARBON DIOXIDE LEVEL 26 MEQ/L (21-32); CHLORIDE LEVEL 101 MEQ/L (98-107); CREATININE FOR GFR 0.99 MG/DL (0.70-1.30); GLOMERULAR FILTRATION RATE > 60.0 (>56); GLUCOSE, FASTING 377 MG/DL (70-100); POTASSIUM SERUM 4.3 MEQ/L (3.5-5.1); SODIUM LEVEL 133 MEQ/L (136-145); TOTAL PROTEIN 7.6 GM/DL (6.4-8.2)
== END ==
LOC: M SFHCCLAY 07:24
PROVIDERS: ATTEND Nurse Practitioner Family
DX: E11.9 Type 2 diabetes mellitus without complications (principal)

== ENCOUNTER → 2021-08-29 | Outpatient (REF) | payer OTHER ==
[2021-08-30 11:43] LABS: ALBUMIN 3.7 GM/DL (3.2-5.2); ALT/SGPT 21 U/L (12-78); BILIRUBIN,TOTAL 0.7 MG/DL (0.2-1.0); BLOOD UREA NITROGEN 18 MG/DL (7-18); CARBON DIOXIDE LEVEL 27 MEQ/L (21-32); CHLORIDE LEVEL 104 MEQ/L (98-107); CREATININE FOR GFR 1.15 MG/DL (0.70-1.30); GLOMERULAR FILTRATION RATE > 60.0 (>56); GLUCOSE, FASTING 267 MG/DL (70-100); POTASSIUM SERUM 5.7 MEQ/L (3.5-5.1); SODIUM LEVEL 136 MEQ/L (136-145); TOTAL PROTEIN 7.5 GM/DL (6.4-8.2)
[2021-08-30 11:44] LABS: HEMOGLOBIN A1c 9.4 %
== END ==
LOC: M SFHCCLAY 15:17
PROVIDERS: ATTEND Nurse Practitioner Family
DX: E11.9 Type 2 diabetes mellitus without complications (principal)

== ENCOUNTER → 2022-01-08 | Outpatient (REF) | payer OTHER ==
[2022-01-08 17:01] LABS: HEMOGLOBIN A1c 9.9 %
[2022-01-08 17:20] LABS: ALBUMIN 3.7 GM/DL (3.2-5.2); ALT/SGPT 24 U/L (12-78); BILIRUBIN,TOTAL 0.6 MG/DL (0.2-1.0); BLOOD UREA NITROGEN 22 MG/DL (7-18); CALCIUM LEVEL 8.5 MG/DL (8.5-10.1); CARBON DIOXIDE LEVEL 26 MEQ/L (21-32); CHLORIDE LEVEL 104 MEQ/L (98-107); CREATININE FOR GFR 1.13 MG/DL (0.70-1.30); GLOMERULAR FILTRATION RATE > 60.0 (>56); GLUCOSE, FASTING 304 MG/DL (70-100); POTASSIUM SERUM 3.9 MEQ/L (3.5-5.1); SODIUM LEVEL 135 MEQ/L (136-145)
== END ==
LOC: M SFHCCLAY 12:53
PROVIDERS: ATTEND Nurse Practitioner Family
DX: E11.9 Type 2 diabetes mellitus without complications (principal)

== ENCOUNTER → 2022-05-24 | Outpatient (REF) | payer OTHER ==
[2022-05-24 12:06] LABS: HEMOGLOBIN A1c 10.1 %
[2022-05-24 12:32] LABS: ALBUMIN 3.4 GM/DL (3.2-5.2); ALT/SGPT 20 U/L (12-78); BILIRUBIN,TOTAL 0.8 MG/DL (0.2-1.0); BLOOD UREA NITROGEN 13 MG/DL (7-18); CALCIUM LEVEL 8.5 MG/DL (8.5-10.1); CARBON DIOXIDE LEVEL 25 MEQ/L (21-32); CHLORIDE LEVEL 106 MEQ/L (98-107); CHOLESTEROL LEVEL 133 MG/DL (<200); CHOLESTEROL RISK RATIO 2.557 (<5); CREATININE FOR GFR 0.83 MG/DL (0.70-1.30); GLOMERULAR FILTRATION RATE > 60.0 (>56); GLUCOSE, FASTING 206 MG/DL (70-100); HDL CHOLESTEROL 52 MG/DL (>40); LDL CHOLESTEROL 50 MG/DL (<100); NON-HDL-C 81 MG/DL; POTASSIUM SERUM 4.1 MEQ/L (3.5-5.1); SODIUM LEVEL 137 MEQ/L (136-145); TOTAL PROTEIN 7.1 GM/DL (6.4-8.2); TRIGLYCERIDES LEVEL 154 MG/DL (<150)
== END ==
LOC: M SFHCCLAY 06:59
PROVIDERS: ATTEND Nurse Practitioner Family
DX: E11.9 Type 2 diabetes mellitus without complications (principal)

== ENCOUNTER → 2022-08-24 | Outpatient (REF) | payer OTHER ==
[2022-08-24 19:19] LABS: ALBUMIN 3.9 G/DL (3.2-5.2); ALKALINE PHOSPHATASE 119 U/L (46-116); ALT/SGPT 16 U/L (7.0-40); AST/SGOT 12 U/L (<34); BILIRUBIN,TOTAL 0.6 MG/DL (0.3-1.2); BLOOD UREA NITROGEN 24 MG/DL (9-23); CALCIUM LEVEL 9.1 MG/DL (8.5-10.1); CARBON DIOXIDE LEVEL 24 MMOL/L (20-31); CHLORIDE LEVEL 101 MMOL/L (98-107); CREATININE FOR GFR 0.89 MG/DL (0.70-1.30); GLOMERULAR FILTRATION RATE > 60.0 (>56); GLUCOSE, FASTING 329 MG/DL (60-100); SODIUM LEVEL 135 MMOL/L (136-145); TOTAL PROTEIN 7.1 G/DL (5.7-8.2)
[2022-08-24 19:33] LABS: HEMOGLOBIN A1c 9.6 % (4.0-6.0)
== END ==
LOC: M SFHCCLAY 13:30
PROVIDERS: ATTEND Nurse Practitioner Family
DX: E11.9 Type 2 diabetes mellitus without complications (principal)

== ENCOUNTER → 2022-11-20 | Outpatient (REF) | payer OTHER ==
[2022-11-20 17:41] LABS: ALBUMIN 3.9 G/DL (3.2-5.2); ALKALINE PHOSPHATASE 107 U/L (46-116); ALT/SGPT 19 U/L (7.0-40); AST/SGOT 17 U/L (<34); BILIRUBIN,TOTAL 0.6 MG/DL (0.3-1.2); BLOOD UREA NITROGEN 22 MG/DL (9-23); CALCIUM LEVEL 9.1 MG/DL (8.5-10.1); CARBON DIOXIDE LEVEL 31 MMOL/L (20-31); CHLORIDE LEVEL 102 MMOL/L (98-107); GLOMERULAR FILTRATION RATE > 60.0 (>56); GLUCOSE, FASTING 267 MG/DL (60-100); POTASSIUM SERUM 4.6 MMOL/L (3.5-5.1); SODIUM LEVEL 137 MMOL/L (136-145); TOTAL PROTEIN 7.3 G/DL (5.7-8.2)
[2022-11-20 17:50] LABS: HEMOGLOBIN A1c 9.2 % (4.0-6.0)
== END ==
LOC: M SFHCCLAY 14:03
PROVIDERS: ATTEND Nurse Practitioner Family
DX: E11.9 Type 2 diabetes mellitus without complications (principal)

== ENCOUNTER → 2023-02-22 | Outpatient (REF) | payer OTHER ==
[2023-02-22 12:01] LABS: ALBUMIN 3.9 G/DL (3.2-5.2); ALKALINE PHOSPHATASE 104 U/L (46-116); ALT/SGPT 16 U/L (7.0-40); AST/SGOT 8 U/L (<34); BILIRUBIN,TOTAL 0.9 MG/DL (0.3-1.2); BLOOD UREA NITROGEN 18 MG/DL (9-23); CALCIUM LEVEL 8.9 MG/DL (8.5-10.1); CARBON DIOXIDE LEVEL 29 MMOL/L (20-31); CHLORIDE LEVEL 103 MMOL/L (98-107); CREATININE FOR GFR 1.01 MG/DL (0.70-1.30); GLOMERULAR FILTRATION RATE > 60.0 (>56); GLUCOSE, FASTING 244 MG/DL (60-100); POTASSIUM SERUM 4.6 MMOL/L (3.5-5.1); SODIUM LEVEL 138 MMOL/L (136-145); TOTAL PROTEIN 7.1 G/DL (5.7-8.2)
== END ==
LOC: M SFHCCLAY 07:05
PROVIDERS: ATTEND Nurse Practitioner Family
DX: E11.9 Type 2 diabetes mellitus without complications (principal)

== ENCOUNTER → 2023-02-26 | Outpatient (REF) | payer OTHER | LOC: M SFHCCLAY 14:35 | PROVIDERS: ATTEND Nurse Practitioner Family | DX: E11.9 Type 2 diabetes mellitus without complications (principal) ==

== ENCOUNTER 2023-05-13 07:39 | Day surgery (SDC) | payer BC, OTHER ==
[~2023-05-13] VITALS: Ht 177.8 cm; Wt 129.3 kg
[~2023-05-13 07:39] MED LIST changes: +DOXY20TA4 PO; +ECOT81TA5 PO; +FARX1TAB3 PO; +NS 1,000 ML IV ONE; +SEMA1PEN2 SC
[2023-05-13] MEDS ORDERED: propofoL 200 MG/20 ML VIAL As Ordered ONE (08:24)
[2023-05-13] MEDS ORDERED: LIDOCAINE 2% 100MG/5ML SDV (FOR ANES.) As Ordered ONE (08:24)
[2023-05-13 08:56] VITALS: BP 120/68; O2SAT 94
== END 2023-05-13 08:58 | disposition home or self-care (01) ==
LOC: M OPP 07:39
PROVIDERS: ATTEND Internal Medicine Gastroenterology
DX: Z12.11 Encounter for screening for malignant neoplasm of colon (principal); Z79.82 Long term (current) use of aspirin; Z79.84 Long term (current) use of oral hypoglycemic drugs; Z79.85 Long-term (current) use of injectable non-insulin antidiabetic drugs; Z53.8 Procedure and treatment not carried out for other reasons

== ENCOUNTER → 2023-08-06 | Day surgery (SDC) | payer BC, OTHER ==
[~2023-08-06] VITALS: Ht 177.8 cm; Wt 125.8 kg
[~2023-08-06] MED LIST changes: +LIDOCAINE 2% 100MG/5ML SDV (FOR ANES.) As Ordered ONE; +SEMA2PEN SQ; +SIMETHICONE 40MG/0.6ML DROPS 30ML As Ordered ONE; +propofoL 200 MG/20 ML VIAL As Ordered ONE
[2023-08-06 07:59] VITALS: TEMP 97.8
[2023-08-06 08:20] VITALS: BP 108/65; O2SAT 98
== END | disposition home or self-care (01) ==
LOC: M OPP 06:50
PROVIDERS: ATTEND Internal Medicine Gastroenterology
DX: D12.2 Benign neoplasm of ascending colon (principal); K64.8 Other hemorrhoids; Z12.11 Encounter for screening for malignant neoplasm of colon; E11.9 Type 2 diabetes mellitus without complications; K21.9 Gastro-esophageal reflux disease without esophagitis; Z79.84 Long term (current) use of oral hypoglycemic drugs

== ENCOUNTER → 2023-08-26 | Outpatient (REF) | payer OTHER ==
[~2023-08-26] MED LIST changes: -LIDOCAINE 2% 100MG/5ML SDV (FOR ANES.) As Ordered ONE; -NS 1,000 ML IV ONE; -SIMETHICONE 40MG/0.6ML DROPS 30ML As Ordered ONE; -propofoL 200 MG/20 ML VIAL As Ordered ONE
[2023-08-26 14:36] LABS: ALBUMIN 3.7 G/DL (3.2-5.2); ALKALINE PHOSPHATASE 98 U/L (46-116); ALT/SGPT 15 U/L (7.0-40); AST/SGOT 12 U/L (<34); BILIRUBIN,TOTAL 0.8 MG/DL (0.3-1.2); BLOOD UREA NITROGEN 18 MG/DL (9-23); CALCIUM LEVEL 8.9 MG/DL (8.5-10.1); CARBON DIOXIDE LEVEL 26 MMOL/L (20-31); CHLORIDE LEVEL 103 MMOL/L (98-107); CREATININE FOR GFR 0.91 MG/DL (0.70-1.30); GLOMERULAR FILTRATION RATE > 60.0 (>56); GLUCOSE, FASTING 244 MG/DL (60-100); POTASSIUM SERUM 4.5 MMOL/L (3.5-5.1); SODIUM LEVEL 135 MMOL/L (136-145)
[2023-08-26 14:37] LABS: HEMOGLOBIN A1c 8.5 % (4.0-6.0)
== END ==
LOC: M SFHCCLAY 08:06
PROVIDERS: ATTEND Nurse Practitioner Family
DX: E11.9 Type 2 diabetes mellitus without complications (principal)

== ENCOUNTER 2023-09-11 16:16 | Day surgery (SDC) | payer BC, OTHER ==
[~2023-09-11] VITALS: Ht 177.8 cm; Wt 123.5 kg
[2023-09-11 17:18] LABS: BASO % 0.3 % (0.0-1.0); EOS % 0.2 % (0.0-3.0); HEMATOCRIT 50.5 % (42.0-52.0); HEMOGLOBIN 17.4 g/dl (13.5-17.5); LYMPH # 1.2 10^3/uL (1.5-5.0); LYMPH % 10.3 % (24.0-44.0); MEAN CORPUSCULAR HGB CONC 34.5 g/dl (32.0-36.5); MEAN CORPUSCULAR VOLUME 87.1 fl (80.0-96.0); MONO # 1.2 10^3/uL (0.0-0.8); MONO % 9.8 % (2.0-8.0); NEUTROPHILS # 9.4 10^3/uL (1.5-8.5); PLATELET COUNT, AUTOMATED 165 10^3/uL (150-450); WHITE BLOOD COUNT 11.9 10^3/uL (4.0-10.0)
[2023-09-11 17:40] LABS: ALBUMIN 3.9 G/DL (3.2-5.2); BILIRUBIN,DIRECT 0.4 MG/DL (<0.4); BILIRUBIN,TOTAL 1.6 MG/DL (0.3-1.2); TOTAL PROTEIN 7.3 G/DL (5.7-8.2)
[2023-09-11] MEDS ORDERED: NS 1,000 ML IV ONE (18:00)
[2023-09-11] MEDS ORDERED: KETOROLAC 30 MG/ML 1ML VIAL IV ONE (18:00)
[2023-09-11] MEDS ORDERED: ONDANSETRON 4MG 2ML VIAL IV ONE (18:00)
[2023-09-11] MEDS ORDERED: ISOVUE-370 76% 100ML VIAL As Ordered ONE (18:01)
[2023-09-11] MEDS ORDERED: PIPERACILLIN/TAZOBACTAM SOD 4.5 GM in D5W MINI-BAG PLUS 50 ML IV ONE (18:45)
[2023-09-11] MEDS ORDERED: MIDAZOLAM INJ 2MG/2ML VIAL As Ordered ONE (19:12)
[2023-09-11] MEDS ORDERED: fentaNYL 100 MCG/2 ML INJECTION As Ordered ONE ×2 (19:12→20:50)
[2023-09-11] MEDS ORDERED: ROCURONIUM BROMIDE 50MG/5ML VIAL As Ordered ONE ×2 (19:13→20:50)
[2023-09-11] MEDS ORDERED: LIDOCAINE 2% 100MG/5ML SDV (FOR ANES.) As Ordered ONE (19:13)
[2023-09-11] MEDS ORDERED: ONDANSETRON 4MG 2ML VIAL As Ordered ONE (19:13)
[2023-09-11] MEDS ORDERED: propofoL 200 MG/20 ML VIAL As Ordered ONE (19:13)
[2023-09-11] MEDS ORDERED: ZOSYN 4.5GM VIAL As Ordered ONE ×2 (19:36→20:02)
[2023-09-11] MEDS ORDERED: MED REC IN PROGRESS XX SCH (19:40)
[2023-09-11] MEDS ORDERED: NORCO, ANEXSIA 5/325MG TABLET (HYDROcodone/ACETAMINOPHEN) PO PRN ×2 (19:55)
[2023-09-11] MEDS ORDERED: ONDANSETRON 4MG 2ML VIAL IV PRN (19:55)
[2023-09-11 20:08] LABS: RSV AMPLIFICATION NEGATIVE (NEGATIVE)
[2023-09-11] MEDS ORDERED: ACETAMINOPHEN 1000MG 100ML IV BAG As Ordered ONE (20:27)
[2023-09-11] MEDS ORDERED: VASOPRESSIN INJ 20UNITS/ML 1ML VIAL As Ordered ONE (20:31)
[2023-09-11] MEDS ORDERED: SUGAMMADEX SODIUM 500 MG/5 ML VIAL (BRIDION) As Ordered ONE (20:39)
[2023-09-11] MEDS ORDERED: PHENYLephrine 500MCG 5ML (100MCG/ML) SYRINGE As Ordered ONE (20:39)
[2023-09-11 22:05] VITALS: BP 105/66; TEMP 97.9; O2SAT 94
[2023-09-11] MEDS: SENOKOT S TAB PO SCH (22:05)
[2023-09-11] MEDS: NS 1,000 ML IV SCH (22:05)
[2023-09-11 22:31] VITALS: BP 105/68; TEMP 97.5; O2SAT 95
[2023-09-11 23:36] VITALS: BP 96/57; TEMP 97.6; O2SAT 92
[2023-09-11] MEDS ORDERED: HOME MED LIST COMPLETE! XX SCH (23:40)
[2023-09-12 00:09] VITALS: BP 98/52
[2023-09-12 00:36] VITALS: BP 115/67; TEMP 97.5; O2SAT 95
[2023-09-12 01:36] VITALS: BP 124/67; TEMP 97.5; O2SAT 99
[2023-09-12] MEDS: KETOROLAC 30 MG/ML 1ML VIAL IV PRN ×2 (02:00→08:53)
[2023-09-12] MEDS: PIPERACILLIN/TAZOBACTAM SOD 3.375 GM in D5W MINI-BAG PLUS 50 ML IV SCH ×2 (02:00→08:52)
[2023-09-12 02:36] VITALS: BP 119/70; TEMP 99; O2SAT 92
[2023-09-12 05:59] VITALS: BP 99/59; TEMP 99.8; O2SAT 94
[2023-09-12] MEDS: NS 1,000 ML IV SCH (06:15)
[2023-09-12 06:26] VITALS: BP 128/84
[2023-09-12 06:59] LABS: HEMATOCRIT 46.6 % (42.0-52.0); HEMOGLOBIN 16.1 g/dl (13.5-17.5); MEAN CORPUSCULAR HGB CONC 34.5 g/dl (32.0-36.5); MEAN CORPUSCULAR VOLUME 89.6 fl (80.0-96.0); PLATELET COUNT, AUTOMATED 154 10^3/uL (150-450)
[2023-09-12] MEDS ORDERED: AMOX875T2 PO (08:50)
[2023-09-12] MEDS ORDERED: HYDR-3715 PO (08:50)
[2023-09-12] MEDS: SENOKOT S TAB PO SCH (08:52)
== END 2023-09-12 12:45 | disposition home or self-care (01) ==
LOC: M ED 16:16 → M OROP 19:14 → M MS5PR 21:48 → M OROP 09-12 12:45
PROVIDERS: ATTEND Surgery
DX: K35.891 Other acute appendicitis without perforation, with gangrene (principal); E11.9 Type 2 diabetes mellitus without complications; Z79.82 Long term (current) use of aspirin; Z79.899 Other long term (current) drug therapy; Z79.84 Long term (current) use of oral hypoglycemic drugs
CPT/HCPCS: 36415; 44970; 74177; 80047; 80076; 81001; 83690; 85025; 85027; 87631; 88304; 99284; J0131; J0665; J1885; J2250; J2371; J2405; J2543; J2598; J3010; Q9967

== ENCOUNTER 2023-09-19 04:33 | Inpatient (IN) | payer BC, OTHER ==
[~2023-09-19] VITALS: Ht 177.8 cm; Wt 121.6 kg
[~2023-09-19 04:33] MED LIST changes: +AMOX875T2 PO; +HYDR-3715 PO
[2023-09-19] MEDS ORDERED: NS 1,000 ML IV ONE (05:00)
[2023-09-19 05:04] LABS: BASO % 0.5 % (0.0-1.0); EOS # 0.1 10^3/uL (0.0-0.5); EOS % 1.6 % (0.0-3.0); HEMATOCRIT 49.6 % (42.0-52.0); HEMOGLOBIN 17.1 g/dl (13.5-17.5); LYMPH % 15.1 % (24.0-44.0); MEAN CORPUSCULAR HEMOGLOBIN 29.9 pg (27.0-33.0); MEAN CORPUSCULAR HGB CONC 34.5 g/dl (32.0-36.5); MEAN CORPUSCULAR VOLUME 86.7 fl (80.0-96.0); MONO # 0.5 10^3/uL (0.0-0.8); MONO % 8.4 % (2.0-8.0); NEUTROPHILS # 4.6 10^3/uL (1.5-8.5); NEUTROPHILS % 72.5 % (36.0-66.0); PLATELET COUNT, AUTOMATED 300 10^3/uL (150-450); RED BLOOD COUNT 5.72 10^6/uL (4.30-6.10); WHITE BLOOD COUNT 6.3 10^3/uL (4.0-10.0)
[2023-09-19 05:23] LABS: LIPASE 69 U/L (12-53)
[2023-09-19 05:25] LABS: ALBUMIN 2.3 G/DL (3.2-5.2); ALKALINE PHOSPHATASE 71 U/L (46-116); ALT/SGPT < 9 U/L (7.0-40); AST/SGOT 11 U/L (<34); BILIRUBIN,DIRECT 0.2 MG/DL (<0.4); BILIRUBIN,TOTAL 0.6 MG/DL (0.3-1.2); BLOOD UREA NITROGEN 15 MG/DL (9-23); CALCIUM LEVEL 8.2 MG/DL (8.5-10.1); CARBON DIOXIDE LEVEL 24 MMOL/L (20-31); CHLORIDE LEVEL 99 MMOL/L (98-107); CREATININE FOR GFR 0.66 MG/DL (0.70-1.30); GLOMERULAR FILTRATION RATE > 60.0 (>56); GLUCOSE, FASTING 247 MG/DL (60-100); POTASSIUM SERUM 3.9 MMOL/L (3.5-5.1); SODIUM LEVEL 134 MMOL/L (136-145); TOTAL PROTEIN 6.1 G/DL (5.7-8.2)
[2023-09-19] MEDS ORDERED: MORPHINE 4 MG/ML 1ML VIAL IV ONE (06:40)
[2023-09-19] MEDS ORDERED: PIPERACILLIN/TAZOBACTAM SOD 3.375 GM in D5W MINI-BAG PLUS 50 ML IV ONE (08:35)
[2023-09-19] MEDS ORDERED: ENOXAPARIN 40MG/0.4ML SYRINGE (J1650 PER 10MG) SC SCH (09:00)
[2023-09-19] MEDS ORDERED: MED REC IN PROGRESS XX SCH (09:30)
[2023-09-19] MEDS ORDERED: DEXTROSE 50% 50ML SYRINGE IV PRN (09:50)
[2023-09-19] MEDS ORDERED: GLUCOSE 4GM CHEW TABLET PO PRN (09:50)
[2023-09-19] MEDS ORDERED: ONDANSETRON 4MG 2ML VIAL IV PRN (09:50)
[2023-09-19] MEDS ORDERED: GLUCAGON INJ 1MG VIAL SC PRN (09:50)
[2023-09-19 11:00] VITALS: BP 127/73; TEMP 97.6; O2SAT 97
[2023-09-19] MEDS ORDERED: HOME MED LIST COMPLETE! XX SCH (11:05)
[2023-09-19] MEDS: NS 1,000 ML IV SCH ×2 (11:27→23:45)
[2023-09-19 12:04] VITALS: BP 115/66; TEMP 97.9; O2SAT 97
[2023-09-19] MEDS: PIPERACILLIN/TAZOBACTAM SOD 3.375 GM in D5W MINI-BAG PLUS 50 ML IV SCH ×2 (12:58→18:21)
[2023-09-19] MEDS: HYDROCORTISONE 1% CREAM 30GM TOP SCH ×2 (12:59→21:17)
[2023-09-19] MEDS: INSULIN LISPRO (NovoLOG) PER UNIT SC SCH ×3 (12:59→21:00)
[2023-09-19] MEDS: ACETAMINOPHEN TAB 650MG DOSE (2X325MG) PO PRN ×2 (13:00→20:07)
[2023-09-19] MEDS ORDERED: LIDOCAINE 1% MDV 20ML VIAL As Ordered ONE (16:02)
[2023-09-19 17:31] VITALS: BP 120/79; TEMP 97.4; O2SAT 97
[2023-09-19] MEDS: MORPHINE 2 MG/ML 1ML VIAL IV PRN ×2 (17:34→21:21)
[2023-09-19 19:07] VITALS: BP 124/71; TEMP 97.2; O2SAT 98
[2023-09-20] VITALS (7 sets, daily range): BP systolic 113–126; BP diastolic 59–72; TEMP 97.6–98.6; O2SAT 92–98
[2023-09-20] MEDS: MORPHINE 2 MG/ML 1ML VIAL IV PRN ×7 (00:26→23:19)
[2023-09-20] MEDS: PIPERACILLIN/TAZOBACTAM SOD 3.375 GM in D5W MINI-BAG PLUS 50 ML IV SCH ×4 (00:26→18:12)
[2023-09-20 07:33] LABS: BASO % 0.3 % (0.0-1.0); EOS # 0.1 10^3/uL (0.0-0.5); EOS % 1.7 % (0.0-3.0); LYMPH # 0.7 10^3/uL (1.5-5.0); LYMPH % 11.1 % (24.0-44.0); MEAN CORPUSCULAR HEMOGLOBIN 30.1 pg (27.0-33.0); MEAN CORPUSCULAR HGB CONC 34.4 g/dl (32.0-36.5); MEAN CORPUSCULAR VOLUME 87.5 fl (80.0-96.0); MONO # 0.4 10^3/uL (0.0-0.8); MONO % 6.5 % (2.0-8.0); NEUTROPHILS # 5.3 10^3/uL (1.5-8.5); PLATELET COUNT, AUTOMATED 276 10^3/uL (150-450); RED BLOOD COUNT 4.95 10^6/uL (4.30-6.10); WHITE BLOOD COUNT 6.6 10^3/uL (4.0-10.0)
[2023-09-20 07:41] LABS: HEMATOCRIT 43.3 % (42.0-52.0); HEMOGLOBIN 14.9 g/dl (13.5-17.5)
[2023-09-20 07:52] LABS: BLOOD UREA NITROGEN 8 MG/DL (9-23); CALCIUM LEVEL 7.6 MG/DL (8.5-10.1); CARBON DIOXIDE LEVEL 26 MMOL/L (20-31); CHLORIDE LEVEL 102 MMOL/L (98-107); CREATININE FOR GFR 0.55 MG/DL (0.70-1.30); GLOMERULAR FILTRATION RATE > 60.0 (>56); GLUCOSE, FASTING 201 MG/DL (60-100); MAGNESIUM LEVEL 1.6 MG/DL (1.8-2.4); POTASSIUM SERUM 3.4 MMOL/L (3.5-5.1); SODIUM LEVEL 137 MMOL/L (136-145)
[2023-09-20] MEDS: INSULIN LISPRO (NovoLOG) PER UNIT SC SCH ×4 (08:15→20:15)
[2023-09-20] MEDS: ENOXAPARIN 40MG/0.4ML SYRINGE (J1650 PER 10MG) SC SCH (08:15)
[2023-09-20] MEDS: HYDROCORTISONE 1% CREAM 30GM TOP SCH ×2 (08:16→20:15)
[2023-09-20] MEDS ORDERED: HEPARIN SOD (PORCINE) 5000UNITS/ML 1ML VIAL/SYRINGE SQ SCH (08:40)
[2023-09-20] MEDS ORDERED: MAGNESIUM OXIDE 400MG TAB (MAG-OX) PO ONE (09:05)
[2023-09-20] MEDS ORDERED: POTASSIUM CHLORIDE 10MEQ SR TABLET PO ONE (09:05)
[2023-09-20] MEDS: OMEPRAZOLE 20MG CAP PO SCH (09:41)
[2023-09-20] MEDS: ASPIRIN 81MG ENTERIC TABLET PO SCH (09:41)
[2023-09-21] MEDS: PIPERACILLIN/TAZOBACTAM SOD 3.375 GM in D5W MINI-BAG PLUS 50 ML IV SCH ×4 (01:10→18:38)
[2023-09-21 03:34] VITALS: BP 117/62; TEMP 97.9; O2SAT 95
[2023-09-21] MEDS: MORPHINE 2 MG/ML 1ML VIAL IV PRN ×5 (03:43→23:33)
[2023-09-21 05:23] LABS: BASO % 0.4 % (0.0-1.0); EOS # 0.1 10^3/uL (0.0-0.5); EOS % 1.5 % (0.0-3.0); HEMATOCRIT 43.1 % (42.0-52.0); HEMOGLOBIN 14.6 g/dl (13.5-17.5); LYMPH # 0.9 10^3/uL (1.5-5.0); LYMPH % 13.9 % (24.0-44.0); MEAN CORPUSCULAR HEMOGLOBIN 29.9 pg (27.0-33.0); MEAN CORPUSCULAR HGB CONC 33.9 g/dl (32.0-36.5); MEAN CORPUSCULAR VOLUME 88.1 fl (80.0-96.0); MONO # 0.4 10^3/uL (0.0-0.8); MONO % 6.5 % (2.0-8.0); NEUTROPHILS # 5.2 10^3/uL (1.5-8.5); NEUTROPHILS % 76.1 % (36.0-66.0); PLATELET COUNT, AUTOMATED 286 10^3/uL (150-450); RED BLOOD COUNT 4.89 10^6/uL (4.30-6.10); WHITE BLOOD COUNT 6.8 10^3/uL (4.0-10.0)
[2023-09-21 05:48] LABS: BLOOD UREA NITROGEN 8 MG/DL (9-23); CALCIUM LEVEL 7.7 MG/DL (8.5-10.1); CARBON DIOXIDE LEVEL 29 MMOL/L (20-31); CHLORIDE LEVEL 101 MMOL/L (98-107); CREATININE FOR GFR 0.67 MG/DL (0.70-1.30); GLOMERULAR FILTRATION RATE > 60.0 (>56); GLUCOSE, FASTING 261 MG/DL (60-100); MAGNESIUM LEVEL 1.7 MG/DL (1.8-2.4); POTASSIUM SERUM 3.5 MMOL/L (3.5-5.1); SODIUM LEVEL 137 MMOL/L (136-145)
[2023-09-21 07:30] VITALS: BP 124/69; TEMP 97.8; O2SAT 91
[2023-09-21] MEDS: INSULIN LISPRO (NovoLOG) PER UNIT SC SCH ×4 (08:05→20:29)
[2023-09-21] MEDS: ENOXAPARIN 40MG/0.4ML SYRINGE (J1650 PER 10MG) SC SCH (08:05)
[2023-09-21] MEDS: ASPIRIN 81MG ENTERIC TABLET PO SCH (08:05)
[2023-09-21] MEDS: OMEPRAZOLE 20MG CAP PO SCH (08:05)
[2023-09-21] MEDS: HYDROCORTISONE 1% CREAM 30GM TOP SCH ×2 (08:06→20:33)
[2023-09-21] MEDS: SENOKOT S TAB PO SCH ×2 (08:53→20:33)
[2023-09-21 11:51] VITALS: BP 114/62; TEMP 98.1; O2SAT 96
[2023-09-21 16:12] VITALS: BP 124/76; TEMP 99.1; O2SAT 96
[2023-09-21 23:30] VITALS: BP 119/72; TEMP 98.6; O2SAT 95
[2023-09-22] MEDS: PIPERACILLIN/TAZOBACTAM SOD 3.375 GM in D5W MINI-BAG PLUS 50 ML IV SCH ×4 (00:48→18:51)
[2023-09-22] MEDS ORDERED: ISOVUE-370 76% 100ML VIAL As Ordered ONE (03:15)
[2023-09-22] MEDS: GASTROGRAFIN SOLUTION 30ML PO SCH ×2 (03:31→04:03)
[2023-09-22 05:46] LABS: BASO % 0.6 % (0.0-1.0); EOS # 0.1 10^3/uL (0.0-0.5); EOS % 1.7 % (0.0-3.0); HEMATOCRIT 42.4 % (42.0-52.0); HEMOGLOBIN 14.3 g/dl (13.5-17.5); LYMPH % 14.7 % (24.0-44.0); MEAN CORPUSCULAR HGB CONC 33.7 g/dl (32.0-36.5); MEAN CORPUSCULAR VOLUME 88.9 fl (80.0-96.0); MONO # 0.4 10^3/uL (0.0-0.8); MONO % 6.3 % (2.0-8.0); NEUTROPHILS # 4.9 10^3/uL (1.5-8.5); NEUTROPHILS % 75.3 % (36.0-66.0); PLATELET COUNT, AUTOMATED 323 10^3/uL (150-450); RED BLOOD COUNT 4.77 10^6/uL (4.30-6.10); WHITE BLOOD COUNT 6.6 10^3/uL (4.0-10.0)
[2023-09-22 06:12] LABS: BLOOD UREA NITROGEN 8 MG/DL (9-23); CALCIUM LEVEL 7.6 MG/DL (8.5-10.1); CARBON DIOXIDE LEVEL 29 MMOL/L (20-31); CHLORIDE LEVEL 100 MMOL/L (98-107); CREATININE FOR GFR 0.52 MG/DL (0.70-1.30); GLOMERULAR FILTRATION RATE > 60.0 (>56); GLUCOSE, FASTING 249 MG/DL (60-100); MAGNESIUM LEVEL 1.6 MG/DL (1.8-2.4); POTASSIUM SERUM 3.3 MMOL/L (3.5-5.1); SODIUM LEVEL 136 MMOL/L (136-145)
[2023-09-22] MEDS: MORPHINE 2 MG/ML 1ML VIAL IV PRN ×2 (06:21→20:39)
[2023-09-22] MEDS: HYDROCORTISONE 1% CREAM 30GM TOP SCH ×2 (08:19→20:39)
[2023-09-22] MEDS: ENOXAPARIN 40MG/0.4ML SYRINGE (J1650 PER 10MG) SC SCH (08:19)
[2023-09-22] MEDS: INSULIN LISPRO (NovoLOG) PER UNIT SC SCH ×4 (08:19→20:37)
[2023-09-22] MEDS: ASPIRIN 81MG ENTERIC TABLET PO SCH (08:19)
[2023-09-22] MEDS: SENOKOT S TAB PO SCH ×2 (08:19→20:38)
[2023-09-22] MEDS: OMEPRAZOLE 20MG CAP PO SCH (08:20)
[2023-09-22 08:43] VITALS: BP 120/74; TEMP 97.9; O2SAT 96
[2023-09-22] MEDS ORDERED: MAG SULF 1GM/100ML (MAG RUN) 1 GM in IV 1 EA IV ONE (09:00)
[2023-09-22] MEDS: KCL 10MEQ/100ML SWI (KRUN) 10 MEQ in IV 1 EA IV SCH ×4 (10:46→14:41)
[2023-09-22] MEDS ORDERED: POTASSIUM CHLORIDE 10MEQ SR TABLET PO ONE (15:00)
[2023-09-22 16:29] VITALS: BP 115/68; TEMP 98.2; O2SAT 94
[2023-09-22 20:00] VITALS: BP 114/64; TEMP 97.7; O2SAT 95
[2023-09-23] MEDS: PIPERACILLIN/TAZOBACTAM SOD 3.375 GM in D5W MINI-BAG PLUS 50 ML IV SCH ×2 (01:09→06:12)
[2023-09-23 03:56] VITALS: BP 112/74; TEMP 98; O2SAT 93
[2023-09-23] MEDS: ACETAMINOPHEN TAB 650MG DOSE (2X325MG) PO PRN (06:12)
[2023-09-23 06:17] LABS: BASO % 0.5 % (0.0-1.0); EOS # 0.1 10^3/uL (0.0-0.5); HEMATOCRIT 41.4 % (42.0-52.0); HEMOGLOBIN 14.3 g/dl (13.5-17.5); LYMPH # 0.9 10^3/uL (1.5-5.0); MEAN CORPUSCULAR HEMOGLOBIN 30.5 pg (27.0-33.0); MEAN CORPUSCULAR HGB CONC 34.5 g/dl (32.0-36.5); MEAN CORPUSCULAR VOLUME 88.3 fl (80.0-96.0); MONO # 0.5 10^3/uL (0.0-0.8); MONO % 8.2 % (2.0-8.0); NEUTROPHILS # 4.4 10^3/uL (1.5-8.5); NEUTROPHILS % 73.1 % (36.0-66.0); PLATELET COUNT, AUTOMATED 360 10^3/uL (150-450); RED BLOOD COUNT 4.69 10^6/uL (4.30-6.10)
[2023-09-23 06:43] LABS: BLOOD UREA NITROGEN 7 MG/DL (9-23); CALCIUM LEVEL 7.6 MG/DL (8.5-10.1); CARBON DIOXIDE LEVEL 32 MMOL/L (20-31); CHLORIDE LEVEL 100 MMOL/L (98-107); CREATININE FOR GFR 0.54 MG/DL (0.70-1.30); GLOMERULAR FILTRATION RATE > 60.0 (>56); GLUCOSE, FASTING 258 MG/DL (60-100); MAGNESIUM LEVEL 1.9 MG/DL (1.8-2.4); POTASSIUM SERUM 3.8 MMOL/L (3.5-5.1); SODIUM LEVEL 136 MMOL/L (136-145)
[2023-09-23 07:46] VITALS: BP 121/69; TEMP 97.2; O2SAT 95
[2023-09-23] MEDS: INSULIN LISPRO (NovoLOG) PER UNIT SC SCH ×2 (08:41→12:00)
[2023-09-23] MEDS: ENOXAPARIN 40MG/0.4ML SYRINGE (J1650 PER 10MG) SC SCH (08:42)
[2023-09-23] MEDS: OMEPRAZOLE 20MG CAP PO SCH (08:42)
[2023-09-23] MEDS: HYDROCORTISONE 1% CREAM 30GM TOP SCH (08:42)
[2023-09-23] MEDS: SENOKOT S TAB PO SCH (08:42)
[2023-09-23] MEDS: ASPIRIN 81MG ENTERIC TABLET PO SCH (08:42)
[2023-09-23] MEDS ORDERED: POTASSIUM CHLORIDE 10MEQ SR TABLET PO ONE (08:50)
[2023-09-23 11:44] VITALS: BP 97/60; TEMP 96.1; O2SAT 94
== END 2023-09-23 13:09 | disposition home or self-care (01) | DRG 721 ==
LOC: EDBD 04:33 → M ED 04:33 → M ED INP 09:48 → M PCU 10:59
PROVIDERS: ADMIT Family Medicine; ATTEND Family Medicine
PROC: 0W9F30Z Drainage of Abdominal Wall with Drainage Device, Percutaneous Approach (ICD-10-PCS; principal; 2023-09-19 16:17)
DX: T81.43XA Infection following a procedure, organ and space surgical site, initial encounter (principal); K65.1 Peritoneal abscess; E83.42 Hypomagnesemia; B96.20 Unspecified Escherichia coli [E. coli] as the cause of diseases classified elsewhere; E11.9 Type 2 diabetes mellitus without complications; E87.6 Hypokalemia; Z90.49 Acquired absence of other specified parts of digestive tract; Z79.82 Long term (current) use of aspirin; Z79.2 Long term (current) use of antibiotics; Z79.84 Long term (current) use of oral hypoglycemic drugs; Z79.899 Other long term (current) drug therapy; Z20.822 Contact with and (suspected) exposure to COVID-19

== ENCOUNTER → 2023-09-26 | Outpatient (REF) | payer BC, OTHER | LOC: M SFHCCLAY 18:04 | PROVIDERS: ATTEND Nurse Practitioner Family | DX: Z31.41 Encounter for fertility testing (principal) ==

== ENCOUNTER → 2023-09-27 | Outpatient (CLI) | payer BC, OTHER ==
[~2023-09-27] MED LIST changes: +LEVO1TAB40 PO; +LIDOCAINE 1% MDV 20ML VIAL As Ordered ONE; +METR-265 PO; +MIRA3350 PO; +OXYC1TAB23 PO; +PROB250C PO
[2023-09-27 09:49] VITALS: TEMP 97.7
[2023-09-27 10:50] VITALS: BP 105/67; O2SAT 97
== END ==
LOC: M IRPRO 09:35
PROVIDERS: ATTEND Surgery
DX: K65.1 Peritoneal abscess (principal)

== ENCOUNTER 2023-09-28 10:49 | Observation (INO) | payer BC, OTHER ==
[~2023-09-28] VITALS: Ht 172.7 cm; Wt 118.2 kg
[~2023-09-28 10:49] MED LIST changes: -LEVO1TAB40 PO; -LIDOCAINE 1% MDV 20ML VIAL As Ordered ONE; -METR-265 PO; -MIRA3350 PO; -OXYC1TAB23 PO; -PROB250C PO
[2023-09-28 11:59] LABS: BASO # 0.1 10^3/uL (0.0-0.2); BASO % 0.9 % (0.0-1.0); EOS # 0.1 10^3/uL (0.0-0.5); EOS % 1.1 % (0.0-3.0); HEMOGLOBIN 16.5 g/dl (13.5-17.5); MEAN CORPUSCULAR HEMOGLOBIN 29.8 pg (27.0-33.0); MEAN CORPUSCULAR HGB CONC 34.4 g/dl (32.0-36.5); MEAN CORPUSCULAR VOLUME 86.8 fl (80.0-96.0); MONO # 0.5 10^3/uL (0.0-0.8); MONO % 8.6 % (2.0-8.0); NEUTROPHILS % 70.5 % (36.0-66.0); PLATELET COUNT, AUTOMATED 360 10^3/uL (150-450); RED BLOOD COUNT 5.53 10^6/uL (4.30-6.10); WHITE BLOOD COUNT 5.7 10^3/uL (4.0-10.0)
[2023-09-28 12:25] LABS: LIPASE 63 U/L (12-53)
[2023-09-28 12:27] LABS: ALBUMIN 2.9 G/DL (3.2-5.2); ALKALINE PHOSPHATASE 77 U/L (46-116); ALT/SGPT 13 U/L (7.0-40); AST/SGOT 17 U/L (<34); BILIRUBIN,DIRECT 0.3 MG/DL (<0.4); BILIRUBIN,TOTAL 1.2 MG/DL (0.3-1.2); TOTAL PROTEIN 7.2 G/DL (5.7-8.2)
[2023-09-28] MEDS ORDERED: ONDANSETRON 4MG 2ML VIAL IV ONE (12:55)
[2023-09-28] MEDS ORDERED: PIPERACILLIN/TAZOBACTAM SOD 4.5 GM in D5W MINI-BAG PLUS 50 ML IV ONE (13:10)
[2023-09-28] MEDS: NS 1,000 ML IV SCH ×4 (13:10→21:27)
[2023-09-28 13:13] LABS: BLOOD UREA NITROGEN 11 MG/DL (9-23); CALCIUM LEVEL 8.7 MG/DL (8.5-10.1); CARBON DIOXIDE LEVEL 26 MMOL/L (20-31); CHLORIDE LEVEL 97 MMOL/L (98-107); CREATININE FOR GFR 0.69 MG/DL (0.70-1.30); GLOMERULAR FILTRATION RATE > 60.0 (>56); GLUCOSE, FASTING 258 MG/DL (60-100); POTASSIUM SERUM 4.4 MMOL/L (3.5-5.1); SODIUM LEVEL 130 MMOL/L (136-145)
[2023-09-28 13:40] LABS: BLOOD UREA NITROGEN 12 MG/DL (9-23); CALCIUM LEVEL 8.6 MG/DL (8.5-10.1); CARBON DIOXIDE LEVEL 26 MMOL/L (20-31); CHLORIDE LEVEL 98 MMOL/L (98-107); CREATININE FOR GFR 0.65 MG/DL (0.70-1.30); GLOMERULAR FILTRATION RATE > 60.0 (>56); GLUCOSE, FASTING 234 MG/DL (60-100); SODIUM LEVEL 132 MMOL/L (136-145)
[2023-09-28 14:03] LABS: RSV AMPLIFICATION NEGATIVE (NEGATIVE)
[2023-09-28] MEDS ORDERED: ISOVUE-370 76% 100ML VIAL As Ordered ONE (14:27)
[2023-09-28] MEDS: GASTROGRAFIN SOLUTION 30ML PO SCH ×2 (14:30→14:46)
[2023-09-28] MEDS ORDERED: MORPHINE 4 MG/ML 1ML VIAL IV ONE (15:40)
[2023-09-28] MEDS ORDERED: HOME MED LIST COMPLETE! XX SCH (18:10)
[2023-09-28] MEDS ORDERED: AMOX875T2 PO (18:10)
[2023-09-28] MEDS ORDERED: MOM 30ML SUSPENSION UDC PO PRN (19:30)
[2023-09-28] MEDS ORDERED: DEXTROSE 50% 50ML SYRINGE IV PRN (19:30)
[2023-09-28] MEDS ORDERED: GLUCAGON INJ 1MG VIAL SC PRN (19:30)
[2023-09-28] MEDS ORDERED: ACETAMINOPHEN TAB 650MG DOSE (2X325MG) PO PRN (19:30)
[2023-09-28] MEDS ORDERED: MAALOX 30 ML SUSP *UDC PO PRN (19:30)
[2023-09-28] MEDS ORDERED: PERCOCET 5MG/325MG TAB PO PRN (19:30)
[2023-09-28] MEDS ORDERED: GLUCOSE 4GM CHEW TABLET PO PRN (19:30)
[2023-09-28 21:15] VITALS: BP 123/75; TEMP 98.2; O2SAT 96
[2023-09-28] MEDS: INSULIN LISPRO (NovoLOG) PER UNIT SC SCH (21:42)
[2023-09-28] MEDS: DOCUSATE SODIUM 100MG CAPSULE PO SCH (21:42)
[2023-09-28] MEDS: PERCOCET 5MG/325MG TAB PO PRN (21:44)
[2023-09-28] MEDS: PANTOPRAZOLE 40MG TAB (PROTONIX) PO SCH (22:31)
[2023-09-28] MEDS: AUGMENTIN 875 MG TAB PO SCH (22:31)
[2023-09-29] MEDS: PERCOCET 5MG/325MG TAB PO PRN ×3 (04:11→21:13)
[2023-09-29 06:00] VITALS: BP 116/69; TEMP 98.4; O2SAT 97
[2023-09-29 07:10] LABS: HEMATOCRIT 42.5 % (42.0-52.0); MEAN CORPUSCULAR HGB CONC 33.9 g/dl (32.0-36.5); MEAN CORPUSCULAR VOLUME 88.5 fl (80.0-96.0); PLATELET COUNT, AUTOMATED 295 10^3/uL (150-450); WHITE BLOOD COUNT 5.1 10^3/uL (4.0-10.0)
[2023-09-29 07:11] LABS: HEMOGLOBIN 14.4 g/dl (13.5-17.5)
[2023-09-29 07:41] LABS: ALBUMIN 2.4 G/DL (3.2-5.2); ALKALINE PHOSPHATASE 65 U/L (46-116); ALT/SGPT 11 U/L (7.0-40); AST/SGOT 12 U/L (<34); BILIRUBIN,TOTAL 0.5 MG/DL (0.3-1.2); BLOOD UREA NITROGEN 15 MG/DL (9-23); CALCIUM LEVEL 8.1 MG/DL (8.5-10.1); CARBON DIOXIDE LEVEL 27 MMOL/L (20-31); CHLORIDE LEVEL 102 MMOL/L (98-107); CREATININE FOR GFR 0.75 MG/DL (0.70-1.30); GLOMERULAR FILTRATION RATE > 60.0 (>56); GLUCOSE, FASTING 255 MG/DL (60-100); POTASSIUM SERUM 4.2 MMOL/L (3.5-5.1); SODIUM LEVEL 135 MMOL/L (136-145); TOTAL PROTEIN 5.9 G/DL (5.7-8.2)
[2023-09-29 08:00] VITALS: BP 109/72; TEMP 97.7; O2SAT 99
[2023-09-29] MEDS: DOCUSATE SODIUM 100MG CAPSULE PO SCH ×2 (08:10→20:59)
[2023-09-29] MEDS: AUGMENTIN 875 MG TAB PO SCH ×2 (08:10→20:59)
[2023-09-29] MEDS: PANTOPRAZOLE 40MG TAB (PROTONIX) PO SCH (08:10)
[2023-09-29] MEDS: INSULIN LISPRO (NovoLOG) PER UNIT SC SCH ×4 (08:54→21:00)
[2023-09-29] MEDS: KETOROLAC 30 MG/ML 1ML VIAL IV SCH ×3 (12:42→23:42)
[2023-09-29 15:00] VITALS: BP 108/63; TEMP 97.4; O2SAT 97
[2023-09-29 20:00] VITALS: BP 113/71; TEMP 98.2; O2SAT 96
[2023-09-29] MEDS ORDERED: ENOXAPARIN 40MG/0.4ML SYRINGE (J1650 PER 10MG) SC SCH (21:00)
[2023-09-29 23:55] VITALS: BP 111/70; TEMP 99.5; O2SAT 97
[2023-09-30 06:00] VITALS: TEMP 98; O2SAT 96
[2023-09-30] MEDS: KETOROLAC 30 MG/ML 1ML VIAL IV SCH (06:23)
[2023-09-30 06:39] LABS: BASO # 0.1 10^3/uL (0.0-0.2); BASO % 1.1 % (0.0-1.0); EOS # 0.2 10^3/uL (0.0-0.5); EOS % 4.3 % (0.0-3.0); HEMATOCRIT 42.5 % (42.0-52.0); HEMOGLOBIN 14.3 g/dl (13.5-17.5); LYMPH # 1.3 10^3/uL (1.5-5.0); LYMPH % 28.6 % (24.0-44.0); MEAN CORPUSCULAR HEMOGLOBIN 29.9 pg (27.0-33.0); MEAN CORPUSCULAR HGB CONC 33.6 g/dl (32.0-36.5); MEAN CORPUSCULAR VOLUME 88.7 fl (80.0-96.0); MONO # 0.6 10^3/uL (0.0-0.8); MONO % 12.2 % (2.0-8.0); NEUTROPHILS # 2.5 10^3/uL (1.5-8.5); NEUTROPHILS % 53.2 % (36.0-66.0); PLATELET COUNT, AUTOMATED 254 10^3/uL (150-450); RED BLOOD COUNT 4.79 10^6/uL (4.30-6.10); WHITE BLOOD COUNT 4.7 10^3/uL (4.0-10.0)
[2023-09-30 07:07] LABS: BLOOD UREA NITROGEN 14 MG/DL (9-23); CALCIUM LEVEL 8.1 MG/DL (8.5-10.1); CARBON DIOXIDE LEVEL 28 MMOL/L (20-31); CHLORIDE LEVEL 102 MMOL/L (98-107); CREATININE FOR GFR 0.73 MG/DL (0.70-1.30); GLOMERULAR FILTRATION RATE > 60.0 (>56); GLUCOSE, FASTING 211 MG/DL (60-100); POTASSIUM SERUM 4.1 MMOL/L (3.5-5.1); SODIUM LEVEL 135 MMOL/L (136-145)
[2023-09-30 08:00] VITALS: BP 122/72; TEMP 98.1; O2SAT 97
[2023-09-30] MEDS: PANTOPRAZOLE 40MG TAB (PROTONIX) PO SCH (08:49)
[2023-09-30] MEDS: AUGMENTIN 875 MG TAB PO SCH (08:49)
[2023-09-30] MEDS: DOCUSATE SODIUM 100MG CAPSULE PO SCH (08:49)
[2023-09-30] MEDS: INSULIN LISPRO (NovoLOG) PER UNIT SC SCH (08:51)
[2023-09-30] MEDS ORDERED: MIRA3350 PO (10:45)
[2023-09-30] MEDS ORDERED: METR-265 PO (10:45)
[2023-09-30] MEDS ORDERED: LEVO1TAB40 PO (10:45)
[2023-09-30] MEDS ORDERED: PROB250C PO (10:45)
[2023-09-30] MEDS ORDERED: OXYC1TAB23 PO (10:45)
== END 2023-09-30 12:10 | disposition home or self-care (01) ==
LOC: M ED 10:49 → M ED INP 19:27 → M PED 21:10
PROVIDERS: ADMIT Family Medicine; ATTEND Family Medicine
DX: T85.848A Pain due to other internal prosthetic devices, implants and grafts, initial encounter (principal); Z90.89 Acquired absence of other organs; E87.1 Hypo-osmolality and hyponatremia; E11.9 Type 2 diabetes mellitus without complications; G47.33 Obstructive sleep apnea (adult) (pediatric); K21.9 Gastro-esophageal reflux disease without esophagitis; M54.50 Low back pain, unspecified; Z79.2 Long term (current) use of antibiotics; Z79.84 Long term (current) use of oral hypoglycemic drugs; Z79.82 Long term (current) use of aspirin; Z79.899 Other long term (current) drug therapy
CPT/HCPCS: 36415; 74177; 80047; 80048; 80053; 80076; 81001; 83605; 83690; 85025; 85027; 87040; 87086; 87631; 93041; 94760; 96361; 96365; 96372; 96375; 96376; 99285; J1650; J1815; J1885; J2405; J2543; Q9963; Q9967

== ENCOUNTER → 2023-10-03 | Outpatient (REF) | payer BC, OTHER ==
[~2023-10-03] MED LIST changes: +LEVO1TAB40 PO; +METR-265 PO; +MIRA3350 PO; +OXYC1TAB23 PO; +PROB250C PO
== END ==
LOC: M SFHCCLAY 12:17
PROVIDERS: ATTEND Nurse Practitioner Family
DX: Z31.41 Encounter for fertility testing (principal)

== ENCOUNTER → 2023-10-11 | Outpatient (REF) | payer BC, OTHER | LOC: M SFHCCLAY 10:22 | PROVIDERS: ATTEND Nurse Practitioner Family | DX: Z31.41 Encounter for fertility testing (principal); Z53.9 Procedure and treatment not carried out, unspecified reason ==

== ENCOUNTER → 2023-10-14 | Outpatient (CLI) | payer BC, OTHER ==
[~2023-10-14] MED LIST changes: +E-Z-GAS II EFFERVESCENT PACKET (SODIUM BICARB./CITRIC ACID/SIMETHICONE) As Ordered ONE; +E-Z-HD 98% w/w 340GM SUSP BTL As Ordered ONE; +E-Z-PAQUE 96% w/w SUSP 176GM BTL As Ordered ONE
== END ==
LOC: M RAD 09:50
PROVIDERS: ATTEND Nurse Practitioner Family
DX: E11.9 Type 2 diabetes mellitus without complications (principal); K59.09 Other constipation; K44.9 Diaphragmatic hernia without obstruction or gangrene; R93.3 Abnormal findings on diagnostic imaging of other parts of digestive tract

== ENCOUNTER → 2023-10-14 | Outpatient (REF) | payer OTHER ==
[~2023-10-14] MED LIST changes: -E-Z-GAS II EFFERVESCENT PACKET (SODIUM BICARB./CITRIC ACID/SIMETHICONE) As Ordered ONE; -E-Z-HD 98% w/w 340GM SUSP BTL As Ordered ONE; -E-Z-PAQUE 96% w/w SUSP 176GM BTL As Ordered ONE
[2023-10-14 09:27] LABS: SEMEN APPEARANCE OPAQUE (OPAQUE); SEMEN VISCOSITY LIQUID (LIQUID); SEMEN VOLUME 1.4 ml (2.0-5.0); WBC CONCENTRATION >1 M/ml (<=1 M/ml)
== END ==
LOC: M SFHCCLAY 09:13
PROVIDERS: ATTEND Nurse Practitioner Family
DX: Z31.41 Encounter for fertility testing (principal)

== ENCOUNTER → 2024-01-16 | Outpatient (CLI) | payer BC, OTHER ==
[~2024-01-16] MED LIST changes: -DOXY20TA4 PO; +DOXY20TA6 PO
[2024-01-16 17:10] LABS: BASO # 0.1 10^3/uL (0.0-0.2); BASO % 0.7 % (0.0-1.0); EOS # 0.1 10^3/uL (0.0-0.5); EOS % 1.3 % (0.0-3.0); HEMATOCRIT 51.5 % (42.0-52.0); HEMOGLOBIN 17.6 g/dl (13.5-17.5); LYMPH # 2.5 10^3/uL (1.5-5.0); LYMPH % 32.7 % (24.0-44.0); MEAN CORPUSCULAR HEMOGLOBIN 30.8 pg (27.0-33.0); MEAN CORPUSCULAR HGB CONC 34.2 g/dl (32.0-36.5); MEAN CORPUSCULAR VOLUME 90.2 fl (80.0-96.0); MONO # 0.5 10^3/uL (0.0-0.8); MONO % 6.9 % (2.0-8.0); NEUTROPHILS # 4.5 10^3/uL (1.5-8.5); PLATELET COUNT, AUTOMATED 193 10^3/uL (150-450); RED BLOOD COUNT 5.71 10^6/uL (4.30-6.10); WHITE BLOOD COUNT 7.7 10^3/uL (4.0-10.0)
[2024-01-16 17:14] LABS: ALBUMIN 3.7 G/DL (3.2-5.2); ALKALINE PHOSPHATASE 106 U/L (46-116); ALT/SGPT 10 U/L (7.0-40); AST/SGOT 12 U/L (<34); BILIRUBIN,TOTAL 0.8 MG/DL (0.3-1.2); BLOOD UREA NITROGEN 19 MG/DL (9-23); CALCIUM LEVEL 9.1 MG/DL (8.5-10.1); CARBON DIOXIDE LEVEL 23 MMOL/L (20-31); CHLORIDE LEVEL 106 MMOL/L (98-107); CREATININE FOR GFR 0.78 MG/DL (0.70-1.30); GLOMERULAR FILTRATION RATE > 60.0 (>56); GLUCOSE, FASTING 190 MG/DL (60-100); POTASSIUM SERUM 3.8 MMOL/L (3.5-5.1); PSA SCREENING 0.82 NG/ML (< 4.00); SODIUM LEVEL 137 MMOL/L (136-145); TOTAL PROTEIN 6.9 G/DL (5.7-8.2)
[2024-01-16 17:40] LABS: HEMOGLOBIN A1c 8.3 % (4.0-6.0)
== END ==
LOC: M WUC 10:39
PROVIDERS: ATTEND Nurse Practitioner Family
DX: N52.9 Male erectile dysfunction, unspecified (principal); E11.9 Type 2 diabetes mellitus without complications
CPT/HCPCS: 36415; 80053; 83036; 85025; G0103

== ENCOUNTER → 2024-05-29 | Outpatient (REF) | payer OTHER, BC ==
[2024-05-29 12:11] LABS: ALKALINE PHOSPHATASE 98 U/L (46-116); ALT/SGPT 16 U/L (7.0-40); AST/SGOT 16 U/L (<34); BILIRUBIN,TOTAL 0.8 MG/DL (0.3-1.2); BLOOD UREA NITROGEN 17 MG/DL (9-23); CALCIUM LEVEL 9.2 MG/DL (8.5-10.1); CARBON DIOXIDE LEVEL 25 MMOL/L (20-31); CHLORIDE LEVEL 105 MMOL/L (98-107); CREATININE FOR GFR 0.86 MG/DL (0.70-1.30); GLOMERULAR FILTRATION RATE > 60.0 (>56); GLUCOSE, FASTING 221 MG/DL (60-100); POTASSIUM SERUM 4.3 MMOL/L (3.5-5.1); SODIUM LEVEL 135 MMOL/L (136-145); TOTAL PROTEIN 7.6 G/DL (5.7-8.2)
== END ==
LOC: M LABDRAWC 10:40
PROVIDERS: ATTEND Nurse Practitioner Acute Care
DX: I50.20 Unspecified systolic (congestive) heart failure (principal)

== ENCOUNTER → 2024-07-27 | Outpatient (REF) | payer BC ==
[2024-07-27 11:57] LABS: BASO # 0.1 10^3/uL (0.0-0.2); BASO % 0.7 % (0.0-1.0); EOS # 0.1 10^3/uL (0.0-0.5); EOS % 1.5 % (0.0-3.0); HEMATOCRIT 47.9 % (42.0-52.0); HEMOGLOBIN 16.6 g/dl (13.5-17.5); LYMPH # 2.1 10^3/uL (1.5-5.0); LYMPH % 30.5 % (24.0-44.0); MEAN CORPUSCULAR HEMOGLOBIN 30.1 pg (27.0-33.0); MEAN CORPUSCULAR HGB CONC 34.7 g/dl (32.0-36.5); MEAN CORPUSCULAR VOLUME 86.8 fl (80.0-96.0); MONO # 0.6 10^3/uL (0.0-0.8); MONO % 8.1 % (2.0-8.0); NEUTROPHILS % 58.9 % (36.0-66.0); PLATELET COUNT, AUTOMATED 228 10^3/uL (150-450); RED BLOOD COUNT 5.52 10^6/uL (4.30-6.10); WHITE BLOOD COUNT 6.8 10^3/uL (4.0-10.0)
[2024-07-27 12:25] LABS: ALBUMIN 3.5 G/DL (3.2-5.2); ALKALINE PHOSPHATASE 156 U/L (40-129); ALT/SGPT 13 U/L (7.0-40); AST/SGOT < 8 U/L (<34); BILIRUBIN,TOTAL 0.6 MG/DL (0.3-1.2); BLOOD UREA NITROGEN 17 MG/DL (9-23); CALCIUM LEVEL 9.3 MG/DL (8.5-10.1); CARBON DIOXIDE LEVEL 24 MMOL/L (20-31); CHLORIDE LEVEL 102 MMOL/L (98-107); CHOLESTEROL LEVEL 191 MG/DL (<200); CHOLESTEROL RISK RATIO 4.03 (<5); CREATININE FOR GFR 0.74 MG/DL (0.70-1.30); CREATININE, URINE 70.5 MG/DL; GLOMERULAR FILTRATION RATE > 60.0 (>56); GLUCOSE, FASTING 325 MG/DL (60-100); HDL CHOLESTEROL 47.3 MG/DL (>40); LDL CHOLESTEROL 96.9 MG/DL (<100); MALB URINE SIEMENS < 3.0 MG/L; MAU/CREAT RATIO 4.2 MCG/MG (0.0-30.0); NON-HDL-C 143.7 MG/DL; POTASSIUM SERUM 4.5 MMOL/L (3.5-5.1); SODIUM LEVEL 134 MMOL/L (136-145); TOTAL PROTEIN 7.2 G/DL (5.7-8.2); TRIGLYCERIDES LEVEL 234 MG/DL (<150)
[2024-07-27 12:27] LABS: FREE T4 1.25 NG/DL (0.89-1.76)
[2024-07-27 12:28] LABS: HEMOGLOBIN A1c 9.8 % (4.0-6.0); THYROID STIMULATING HORMONE 1.011 uIU/ML (0.55-4.78)
== END ==
LOC: M SFHCCLAY 08:14
PROVIDERS: ATTEND Nurse Practitioner Family
DX: E11.9 Type 2 diabetes mellitus without complications (principal); E66.01 Morbid (severe) obesity due to excess calories

== ENCOUNTER → 2024-11-12 | Outpatient (CLI) | payer BC ==
[~2024-11-12] MED LIST changes: +METF-1157 PO; -METF-818 PO
[2024-11-12 13:09] LABS: ALBUMIN 3.8 G/DL (3.2-5.2); ALKALINE PHOSPHATASE 106 U/L (40-129); ALT/SGPT 18 U/L (7.0-40); AST/SGOT 14 U/L (<34); BILIRUBIN,TOTAL 1.1 MG/DL (0.3-1.2); BLOOD UREA NITROGEN 17 MG/DL (9-23); CALCIUM LEVEL 9.3 MG/DL (8.5-10.1); CARBON DIOXIDE LEVEL 26 MMOL/L (20-31); CHLORIDE LEVEL 104 MMOL/L (98-107); CHOLESTEROL LEVEL 192 MG/DL (<200); CHOLESTEROL RISK RATIO 3.91 (<5); CREATININE FOR GFR 0.84 MG/DL (0.70-1.30); GLOMERULAR FILTRATION RATE > 60.0 (>56); GLUCOSE, FASTING 216 MG/DL (60-100); LDL CHOLESTEROL 102.4 MG/DL (<100); POTASSIUM SERUM 5.1 MMOL/L (3.5-5.1); SODIUM LEVEL 140 MMOL/L (136-145); TOTAL PROTEIN 7.4 G/DL (5.7-8.2); TRIGLYCERIDES LEVEL 203 MG/DL (<150)
[2024-11-12 13:22] LABS: HEMOGLOBIN A1c 8.9 % (4.0-6.0)
== END ==
LOC: M WUC 10:02
PROVIDERS: ATTEND Nurse Practitioner Family
DX: I42.9 Cardiomyopathy, unspecified (principal)

== ENCOUNTER → 2025-02-05 | Outpatient (REF) | payer BC ==
[2025-02-05 17:52] LABS: ALBUMIN 3.9 G/DL (3.2-5.2); ALKALINE PHOSPHATASE 107 U/L (40-129); ALT/SGPT 15 U/L (7.0-40); AST/SGOT 28 U/L (<34); BILIRUBIN,TOTAL 1.5 MG/DL (0.3-1.2); BLOOD UREA NITROGEN 15 MG/DL (9-23); CALCIUM LEVEL 9.3 MG/DL (8.5-10.1); CARBON DIOXIDE LEVEL 22 MMOL/L (20-31); CHLORIDE LEVEL 102 MMOL/L (98-107); CHOLESTEROL LEVEL 145 MG/DL (<200); CHOLESTEROL RISK RATIO 2.74 (<5); GLOMERULAR FILTRATION RATE > 90.0 (>56); GLUCOSE, FASTING 208 MG/DL (60-100); HDL CHOLESTEROL 52.9 MG/DL (>40); LDL CHOLESTEROL 56.3 MG/DL (<100); NON-HDL-C 92.1 MG/DL; POTASSIUM SERUM 4.2 MMOL/L (3.5-5.1); SODIUM LEVEL 138 MMOL/L (136-145); TOTAL PROTEIN 7.6 G/DL (5.7-8.2); TRIGLYCERIDES LEVEL 179 MG/DL (<150)
[2025-02-05 17:53] LABS: FREE T4 1.41 NG/DL (0.89-1.76); THYROID STIMULATING HORMONE 1.944 uIU/ML (0.55-4.78)
[2025-02-05 18:09] LABS: CREATININE, URINE 175.5 MG/DL; MAU/CREAT RATIO 9.6 MCG/MG (0.0-30.0)
[2025-02-05 18:28] LABS: HEMOGLOBIN A1c 10.3 % (4.0-6.0)
== END ==
LOC: M SFHCCLAY 13:21
PROVIDERS: ATTEND Nurse Practitioner Family
DX: E11.9 Type 2 diabetes mellitus without complications (principal)

== ENCOUNTER → 2025-04-14 | Outpatient (CLI) | payer BC | LOC: M WUC 13:38 | PROVIDERS: ATTEND Nurse Practitioner Family | DX: M25.551 Pain in right hip (principal); M16.11 Unilateral primary osteoarthritis, right hip ==